=== PATIENT | male | born 1945 | race Caucasian/White ===

== ENCOUNTER → 2016-11-30 | Outpatient (CLI) | payer MEDICARE, BC, OTHER ==
[~2016-11-30] MED LIST: /AMIO20TA PO; /WARF5TA PO; BABY81CH PO; COLA100C2 PO; CORE12.5 PO; LEVOSTATIN PO; MILKSUS PO; NIAS500T2 PO; NITR0.4S SL; PAIN325T OR; PRADAXA PO; SPIR25TA2 PO; VALS80CA PO; VICO5TAB PO; XANA0.5T PO
[2016-11-30 09:36] LABS: INR 1.4
== END ==
LOC: M LAB 08:50
PROVIDERS: ATTEND Physician Assistant
DX: I48.0 Paroxysmal atrial fibrillation (principal)

== ENCOUNTER → 2016-12-14 | Outpatient (CLI) | payer MEDICARE, BC, OTHER ==
[2016-12-14 10:01] LABS: INR 2.66
== END ==
LOC: M LAB 08:54
PROVIDERS: ATTEND Nurse Practitioner Family
DX: I48.0 Paroxysmal atrial fibrillation (principal)

== ENCOUNTER → 2017-01-02 | Outpatient (CLI) | payer MEDICARE, BC, OTHER ==
[2017-01-02 10:13] LABS: INR 2.03
== END ==
LOC: M WUC 08:49
PROVIDERS: ATTEND Physician Assistant
DX: I48.0 Paroxysmal atrial fibrillation (principal)

== ENCOUNTER → 2017-01-16 | Outpatient (CLI) | payer MEDICARE, BC, OTHER ==
[2017-01-16 09:42] LABS: MEAN CORPUSCULAR HEMOGLOBIN 30.3 pg (27.0-33.0); MEAN CORPUSCULAR VOLUME 89.3 fl (80.0-96.0); RED CELL DISTRIBUTION WIDTH 13.3 % (11.5-14.5); WHITE BLOOD COUNT 4.7 K/mm3 (4.0-10.0)
[2017-01-16 10:19] LABS: ALBUMIN 3.7 GM/DL (3.2-5.2); ALBUMIN/GLOBULIN RATIO 1.28 (1.00-1.93); BILIRUBIN,TOTAL 0.8 MG/DL (0.2-1.0); CREATININE FOR GFR 1.49 MG/DL (0.70-1.30); GLOMERULAR FILTRATION RATE 49.6 (>42); POTASSIUM SERUM 4.3 MEQ/L (3.5-5.1); TOTAL PROTEIN 6.6 GM/DL (6.4-8.2)
== END ==
LOC: M WUC 08:16
PROVIDERS: ATTEND Internal Medicine Cardiovascular Disease
DX: I48.0 Paroxysmal atrial fibrillation (principal); I50.42 Chronic combined systolic (congestive) and diastolic (congestive) heart failure; I25.119 Atherosclerotic heart disease of native coronary artery with unspecified angina pectoris

== ENCOUNTER → 2017-01-31 | Outpatient (CLI) | payer MEDICARE, BC, OTHER ==
[2017-01-31 11:13] LABS: INR 3.33
== END ==
LOC: M WUC 09:17
PROVIDERS: ATTEND Physician Assistant
DX: I48.0 Paroxysmal atrial fibrillation (principal)

== ENCOUNTER → 2017-02-17 | Outpatient (CLI) | payer MEDICARE, BC, OTHER ==
[2017-02-17 12:59] LABS: INR 2.78
== END ==
LOC: M WUC 10:37
PROVIDERS: ATTEND Physician Assistant
DX: I48.0 Paroxysmal atrial fibrillation (principal)

== ENCOUNTER → 2017-03-06 | Outpatient (CLI) | payer MEDICARE, BC, OTHER ==
[2017-03-06 14:41] LABS: INR 1.41
== END ==
LOC: M WUC 12:59
PROVIDERS: ATTEND Physician Assistant
DX: I48.0 Paroxysmal atrial fibrillation (principal)

== ENCOUNTER → 2017-03-20 | Outpatient (CLI) | payer MEDICARE, BC, OTHER ==
[2017-03-20 13:19] LABS: INR 2.34
== END ==
LOC: M WUC 10:43
PROVIDERS: ATTEND Physician Assistant
DX: I48.0 Paroxysmal atrial fibrillation (principal)

== ENCOUNTER → 2017-04-10 | Outpatient (REF) | payer MEDICARE, BC, OTHER ==
[2017-04-10 13:10] LABS: INR 1.88
== END ==
LOC: M LABDRWAD 12:18 → M LABDRAW1 12:18
PROVIDERS: ATTEND Physician Assistant
DX: I48.0 Paroxysmal atrial fibrillation (principal)

== ENCOUNTER → 2017-04-11 | Outpatient (REF) | payer MEDICARE, OTHER ==
[2017-04-11 13:30] LABS: MEAN CORPUSCULAR HEMOGLOBIN 30.6 pg (27.0-33.0); MEAN CORPUSCULAR HGB CONC 33.9 g/dl (32.0-36.5); MEAN CORPUSCULAR VOLUME 90.2 fl (80.0-96.0); RED CELL DISTRIBUTION WIDTH 13.4 % (11.5-14.5); WHITE BLOOD COUNT 5.1 K/mm3 (4.0-10.0)
[2017-04-11 14:16] LABS: ALBUMIN 3.7 GM/DL (3.2-5.2); ALBUMIN/GLOBULIN RATIO 1.23 (1.00-1.93); BILIRUBIN,TOTAL 0.9 MG/DL (0.2-1.0); CALCIUM LEVEL 8.9 MG/DL (8.8-10.2); CREATININE FOR GFR 1.29 MG/DL (0.70-1.30); FREE T4 1.17 NG/DL (0.76-1.46); GLOMERULAR FILTRATION RATE 58.6 (>42); POTASSIUM SERUM 4.5 MEQ/L (3.5-5.1); TOTAL PROTEIN 6.7 GM/DL (6.4-8.2)
== END ==
LOC: M SFHCADAM 11:04
PROVIDERS: ATTEND Family Medicine
DX: D64.9 Anemia, unspecified (principal); E78.2 Mixed hyperlipidemia; E03.9 Hypothyroidism, unspecified
CPT/HCPCS: 80053; 80061; 84439; 84443; 85027; G0463

== ENCOUNTER → 2017-05-01 | Outpatient (CLI) | payer MEDICARE, OTHER ==
[2017-05-01 12:38] LABS: INR 2.14
== END ==
LOC: M WUC 08:49
PROVIDERS: ATTEND Physician Assistant
DX: I48.0 Paroxysmal atrial fibrillation (principal)

== ENCOUNTER → 2017-05-22 | Outpatient (CLI) | payer MEDICARE, OTHER ==
[2017-05-22 13:11] LABS: INR 2.21
== END ==
LOC: M WUC 08:59
PROVIDERS: ATTEND Physician Assistant
DX: Z79.01 Long term (current) use of anticoagulants (principal); I48.0 Paroxysmal atrial fibrillation

== ENCOUNTER → 2017-06-22 | Outpatient (CLI) | payer MEDICARE, OTHER ==
[2017-06-22 14:24] LABS: INR 2.98
== END ==
LOC: M WUC 08:58
PROVIDERS: ATTEND Physician Assistant
DX: I48.0 Paroxysmal atrial fibrillation (principal)

== ENCOUNTER → 2017-07-20 | Outpatient (CLI) | payer MEDICARE, OTHER ==
[2017-07-20 13:38] LABS: INR 2.24
== END ==
LOC: M WUC 10:32
PROVIDERS: ATTEND Nurse Practitioner Family
DX: I48.0 Paroxysmal atrial fibrillation (principal)

== ENCOUNTER → 2017-08-21 | Outpatient (CLI) | payer MEDICARE, OTHER ==
[2017-08-21 09:42] LABS: INR 0.94
== END ==
LOC: M WUC 08:30
PROVIDERS: ATTEND Nurse Practitioner Family
DX: I48.0 Paroxysmal atrial fibrillation (principal)

== ENCOUNTER → 2017-09-25 | Outpatient (CLI) | payer MEDICARE, OTHER ==
[2017-09-25 13:18] LABS: INR 3.08
== END ==
LOC: M WUC 10:14
PROVIDERS: ATTEND Nurse Practitioner Family
DX: I48.0 Paroxysmal atrial fibrillation (principal); Z79.01 Long term (current) use of anticoagulants

== ENCOUNTER → 2017-10-09 | Outpatient (CLI) | payer MEDICARE, OTHER ==
[2017-10-09 14:33] LABS: INR 5.54
== END ==
LOC: M WUC 09:50
PROVIDERS: ATTEND Nurse Practitioner Family
DX: I48.0 Paroxysmal atrial fibrillation (principal)

== ENCOUNTER → 2017-10-12 | Outpatient (CLI) | payer MEDICARE, BC, OTHER ==
--- NOTE | 2017-10-12 13:33 | REP ---
LEFT LOWER EXTREMITY DOPPLER VENOUS ULTRASOUND: 10/12/2017. Clinical history: Lower extremity pain. History of pulmonary emboli. Currently on Coumadin. Recently lowered dose. Comparison: None. Technique: The deep venous system of the left lower extremity is evaluated with quan scale imaging, compression ultrasound, color imaging and duplex Doppler interrogation. Examination from the groin through the popliteal fossa into the proximal calf. Findings: There is full compressibility from the common femoral vein in the inguinal region through the popliteal vein. Color imaging confirms patency throughout the course of the deep venous system. There is respiratory variation and augmented flow at all levels. The proximal calf shows a 4 x 3.3 x 2 cm hypoechoic irregular density without blood flow. This is apparently intramuscular and has the appearance of complex fluid. Impression: 1. No Doppler venous ultrasound evidence of DVT in the left lower extremity. 2. Complex fluid collection proximal calf which is apparently intramuscular and suggests hematoma at measuring 4 x 3.3 x 2 cm. Signed by Allen Rodriges MD 10/12/2017 08:38 P
== END ==
LOC: M RAD 12:30
PROVIDERS: ATTEND Physician Assistant
DX: M79.662 Pain in left lower leg (principal); Z86.711 Personal history of pulmonary embolism

== ENCOUNTER → 2017-10-16 | Outpatient (CLI) | payer MEDICARE, BC, OTHER ==
[2017-10-16 13:37] LABS: INR 2.09
== END ==
LOC: M WUC 10:04
PROVIDERS: ATTEND Internal Medicine Cardiovascular Disease
DX: I48.2 Chronic atrial fibrillation (principal)

== ENCOUNTER → 2017-10-17 | Outpatient (CLI) | payer MEDICARE, BC, OTHER ==
--- NOTE | 2017-10-17 15:54 | REP ---
PA and lateral chest: Comparison is a 06/25/2016. Lung silva are clear. Cardiac size is normal. The central shawna appear enlarged. This may indicate pulmonary hypertension. The mediastinum and bony thorax are unremarkable. There is a triple lead biventricular pacemaker/AICD. This is unchanged. Impression: There are no acute cardiopulmonary findings. There is a pacemaker, unchanged. The central shawna are chronically enlarged. This may indicate pulmonary hypertension. Signed by Dhiraj Titus MD 10/17/2017 03:46 P
[2017-10-17 16:35] LABS: BASO % 0.3 % (0.0-1.0); EOS % 0.2 % (0.0-3.0); IMMATURE GRANULOCYTE % 0.2 % (0-0); LYMPH # 1.9 10^3/uL (1.5-4.5); LYMPH % 28.2 % (24.0-44.0); MEAN CORPUSCULAR HEMOGLOBIN 29.4 pg (27.0-33.0); MEAN CORPUSCULAR HGB CONC 33.4 g/dl (32.0-36.5); MONO # 0.5 10^3/uL (0.0-0.8); MONO % 6.8 % (0.0-5.0); NEUTROPHILS # 4.3 10^3/uL (1.8-7.7); NEUTROPHILS % 64.3 % (36.0-66.0); PLATELET COUNT, AUTOMATED 289 10^3/uL (150-450); RED CELL DISTRIBUTION WIDTH 12.6 % (11.5-14.5); WHITE BLOOD COUNT 6.6 10^3/uL (4.0-10.0)
[2017-10-17 17:19] LABS: ALBUMIN 3.4 GM/DL (3.2-5.2); ALBUMIN/GLOBULIN RATIO 1.03 (1.00-1.93); BILIRUBIN,TOTAL 0.9 MG/DL (0.2-1.0); CALCIUM LEVEL 8.8 MG/DL (8.8-10.2); CREATININE FOR GFR 1.38 MG/DL (0.70-1.30); GLOMERULAR FILTRATION RATE 54.1 (>42); POTASSIUM SERUM 4.4 MEQ/L (3.5-5.1); TOTAL PROTEIN 6.7 GM/DL (6.4-8.2)
== END ==
LOC: M WUC 13:37
PROVIDERS: ATTEND Internal Medicine Cardiovascular Disease
DX: I48.0 Paroxysmal atrial fibrillation (principal)

== ENCOUNTER → 2017-11-20 | Outpatient (CLI) | payer MEDICARE, BC, OTHER ==
[2017-11-20 14:11] LABS: THYROID STIMULATING HORMONE 0.006 uIU/ML (0.358-3.740)
== END ==
LOC: M WUC 10:06
DX: I50.42 Chronic combined systolic (congestive) and diastolic (congestive) heart failure (principal); I48.0 Paroxysmal atrial fibrillation; E05.90 Thyrotoxicosis, unspecified without thyrotoxic crisis or storm
CPT/HCPCS: 84443

== ENCOUNTER → 2018-01-09 | Outpatient (CLI) | payer MEDICARE, BC, OTHER ==
[2018-01-09 18:35] LABS: THYROID STIMULATING HORMONE 0.064 uIU/ML (0.358-3.740)
== END ==
LOC: M WUC 13:32
DX: I48.0 Paroxysmal atrial fibrillation (principal)
CPT/HCPCS: 84443

== ENCOUNTER → 2018-02-13 | Outpatient (REF) | payer MEDICARE, OTHER ==
[2018-02-13 13:37] LABS: HEMOGLOBIN 14.4 g/dl (13.5-17.5); MEAN CORPUSCULAR HGB CONC 33.5 g/dl (32.0-36.5); MEAN CORPUSCULAR VOLUME 86.5 fl (80.0-96.0); PLATELET COUNT, AUTOMATED 235 10^3/uL (150-450); RED BLOOD COUNT 4.97 10^6/uL (4.30-6.10); RED CELL DISTRIBUTION WIDTH 13.2 % (11.5-14.5); WHITE BLOOD COUNT 6.5 10^3/uL (4.0-10.0)
[2018-02-13 14:30] LABS: ALBUMIN 4.1 GM/DL (3.2-5.2); ALBUMIN/GLOBULIN RATIO 1.24 (1.00-1.93); ALKALINE PHOSPHATASE 90 U/L (45-117); ALT/SGPT 53 U/L (12-78); ANION GAP 4 MEQ/L (8-16); AST/SGOT 37 U/L (7-37); BILIRUBIN,TOTAL 0.8 MG/DL (0.2-1.0); BLOOD UREA NITROGEN 23 MG/DL (7-18); CALCIUM LEVEL 9.2 MG/DL (8.8-10.2); CARBON DIOXIDE LEVEL 30 MEQ/L (21-32); CHLORIDE LEVEL 109 MEQ/L (98-107); CHOLESTEROL LEVEL 192 MG/DL (<200); CHOLESTEROL RISK RATIO 3.047 (<5); CREATININE FOR GFR 1.26 MG/DL (0.70-1.30); FREE T4 0.81 NG/DL (0.76-1.46); GLOMERULAR FILTRATION RATE > 60.0 (>42); GLUCOSE, FASTING 81 MG/DL (70-100); HDL CHOLESTEROL 63 MG/DL (>40); LDL CHOLESTEROL 100.2 MG/DL (<100); NON-HDL-C 129 MG/DL; POTASSIUM SERUM 4.7 MEQ/L (3.5-5.1); SODIUM LEVEL 143 MEQ/L (136-145); TOTAL PROTEIN 7.4 GM/DL (6.4-8.2); TRIGLYCERIDES LEVEL 144 MG/DL (<150)
== END ==
LOC: M SFHCADAM 11:01
DX: I50.22 Chronic systolic (congestive) heart failure (principal); E03.9 Hypothyroidism, unspecified; E78.2 Mixed hyperlipidemia
CPT/HCPCS: 84443

== ENCOUNTER → 2018-05-10 | Outpatient (REF) | payer MEDICARE, OTHER ==
[2018-05-10 12:35] LABS: HEMOGLOBIN 13.2 g/dl (13.5-17.5); MEAN CORPUSCULAR HEMOGLOBIN 29.7 pg (27.0-33.0); MEAN CORPUSCULAR HGB CONC 33.8 g/dl (32.0-36.5); MEAN CORPUSCULAR VOLUME 87.6 fl (80.0-96.0); PLATELET COUNT, AUTOMATED 214 10^3/uL (150-450); RED BLOOD COUNT 4.45 10^6/uL (4.30-6.10); RED CELL DISTRIBUTION WIDTH 13.3 % (11.5-14.5); WHITE BLOOD COUNT 5.7 10^3/uL (4.0-10.0)
[2018-05-10 12:40] LABS: ANION GAP 5 MEQ/L (8-16); BLOOD UREA NITROGEN 17 MG/DL (7-18); CALCIUM LEVEL 9.1 MG/DL (8.8-10.2); CARBON DIOXIDE LEVEL 28 MEQ/L (21-32); CHLORIDE LEVEL 111 MEQ/L (98-107); CREATININE FOR GFR 1.23 MG/DL (0.70-1.30); GLOMERULAR FILTRATION RATE > 60.0 (>42); GLUCOSE, FASTING 89 MG/DL (70-100); POTASSIUM SERUM 4.4 MEQ/L (3.5-5.1); SODIUM LEVEL 144 MEQ/L (136-145)
[2018-05-10 12:54] LABS: INR 1.06; PROTHROMBIN TIME 13.9 SECONDS (12.1-14.4)
[2018-05-10 12:55] LABS: PARTIAL THROMBOPLASTIN TIME 31.5 SECONDS (25.4-37.6)
== END ==
LOC: M SFHCADAM 08:46
DX: Z01.818 Encounter for other preprocedural examination (principal); I25.10 Atherosclerotic heart disease of native coronary artery without angina pectoris; Z79.01 Long term (current) use of anticoagulants
CPT/HCPCS: 80048

== ENCOUNTER → 2018-05-11 | Outpatient (CLI) | payer MEDICARE, OTHER ==
[2018-05-11 16:43] LABS: ALBUMIN 3.8 GM/DL (3.2-5.2); ALBUMIN/GLOBULIN RATIO 1.31 (1.00-1.93); ALKALINE PHOSPHATASE 80 U/L (45-117); ALT/SGPT 46 U/L (12-78); ANION GAP 6 MEQ/L (8-16); AST/SGOT 34 U/L (7-37); BILIRUBIN,TOTAL 1.4 MG/DL (0.2-1.0); BLOOD UREA NITROGEN 15 MG/DL (7-18); CALCIUM LEVEL 9.1 MG/DL (8.8-10.2); CARBON DIOXIDE LEVEL 30 MEQ/L (21-32); CHLORIDE LEVEL 108 MEQ/L (98-107); CREATININE FOR GFR 1.44 MG/DL (0.70-1.30); GLOMERULAR FILTRATION RATE 51.5 (>42); GLUCOSE, FASTING 69 MG/DL (70-100); POTASSIUM SERUM 4.7 MEQ/L (3.5-5.1); SODIUM LEVEL 144 MEQ/L (136-145); TOTAL PROTEIN 6.7 GM/DL (6.4-8.2)
[2018-05-11 16:44] LABS: HEMATOCRIT 39.8 % (42.0-52.0); HEMOGLOBIN 13.6 g/dl (13.5-17.5); MEAN CORPUSCULAR HEMOGLOBIN 29.8 pg (27.0-33.0); MEAN CORPUSCULAR HGB CONC 34.2 g/dl (32.0-36.5); MEAN CORPUSCULAR VOLUME 87.3 fl (80.0-96.0); PLATELET COUNT, AUTOMATED 230 10^3/uL (150-450); RED BLOOD COUNT 4.56 10^6/uL (4.30-6.10); RED CELL DISTRIBUTION WIDTH 13.2 % (11.5-14.5); WHITE BLOOD COUNT 6.1 10^3/uL (4.0-10.0)
[2018-05-11 17:29] LABS: INR 1.11; PROTHROMBIN TIME 14.4 SECONDS (12.1-14.4)
== END ==
LOC: M WUC 11:16
DX: Z51.81 Encounter for therapeutic drug level monitoring (principal); Z79.01 Long term (current) use of anticoagulants; Z95.810 Presence of automatic (implantable) cardiac defibrillator
CPT/HCPCS: 80053

== ENCOUNTER → 2018-08-08 | Outpatient (REF) | payer MEDICARE, OTHER ==
[2018-08-08 13:48] LABS: HEMATOCRIT 41.3 % (42.0-52.0); HEMOGLOBIN 13.7 g/dl (13.5-17.5); MEAN CORPUSCULAR HEMOGLOBIN 29.5 pg (27.0-33.0); MEAN CORPUSCULAR HGB CONC 33.2 g/dl (32.0-36.5); PLATELET COUNT, AUTOMATED 246 10^3/uL (150-450); RED BLOOD COUNT 4.64 10^6/uL (4.30-6.10); RED CELL DISTRIBUTION WIDTH 13.2 % (11.5-14.5); WHITE BLOOD COUNT 5.4 10^3/uL (4.0-10.0)
[2018-08-08 13:59] LABS: ALBUMIN 3.6 GM/DL (3.2-5.2); ALBUMIN/GLOBULIN RATIO 1.09 (1.00-1.93); ALKALINE PHOSPHATASE 77 U/L (45-117); ALT/SGPT 44 U/L (12-78); ANION GAP 5 MEQ/L (8-16); AST/SGOT 30 U/L (7-37); BILIRUBIN,TOTAL 0.8 MG/DL (0.2-1.0); BLOOD UREA NITROGEN 23 MG/DL (7-18); CALCIUM LEVEL 8.7 MG/DL (8.8-10.2); CARBON DIOXIDE LEVEL 29 MEQ/L (21-32); CHLORIDE LEVEL 108 MEQ/L (98-107); CHOLESTEROL LEVEL 177 MG/DL (<200); CHOLESTEROL RISK RATIO 2.723 (<5); CREATININE FOR GFR 1.44 MG/DL (0.70-1.30); FREE T4 1.04 NG/DL (0.76-1.46); GLOMERULAR FILTRATION RATE 51.3 (>42); GLUCOSE, FASTING 87 MG/DL (70-100); HDL CHOLESTEROL 65 MG/DL (>40); LDL CHOLESTEROL 85 MG/DL (<100); NON-HDL-C 112 MG/DL; POTASSIUM SERUM 4.5 MEQ/L (3.5-5.1); SODIUM LEVEL 142 MEQ/L (136-145); TOTAL PROTEIN 6.9 GM/DL (6.4-8.2); TRIGLYCERIDES LEVEL 133 MG/DL (<150)
== END ==
LOC: M SFHCADAM 09:22
DX: E03.9 Hypothyroidism, unspecified (principal); D64.9 Anemia, unspecified; E78.2 Mixed hyperlipidemia; Z23 Encounter for immunization
CPT/HCPCS: 84443

== ENCOUNTER 2018-08-28 12:33 | Day surgery (SDC) | payer MEDICARE, BC, OTHER ==
[2018-08-28] MEDS ORDERED: NS 1,000 ML IV (12:45)
[2018-08-28] MEDS ORDERED: LIDOCAINE 2% INJ 100 MG/5 ML SDV (FOR ANES.) As Ordered (16:11)
[2018-08-28] MEDS ORDERED: PROPOFOL 200 MG/20 ML VIAL As Ordered ×2 (16:11→16:30)
[2018-08-28] MEDS ORDERED: fentaNYL 100 MCG/2 ML INJECTION (J3010) As Ordered (16:11)
== END 2018-08-28 17:43 | disposition home or self-care (01) ==
LOC: M OPP 12:33
DX: R10.30 Lower abdominal pain, unspecified (principal); Z86.010 Personal history of colon polyps; K59.00 Constipation, unspecified; R63.4 Abnormal weight loss; Z98.0 Intestinal bypass and anastomosis status; R13.10 Dysphagia, unspecified; Z95.5 Presence of coronary angioplasty implant and graft; Z95.810 Presence of automatic (implantable) cardiac defibrillator; R07.89 Other chest pain; I25.10 Atherosclerotic heart disease of native coronary artery without angina pectoris; I25.2 Old myocardial infarction; I50.9 Heart failure, unspecified; I11.0 Hypertensive heart disease with heart failure; E78.5 Hyperlipidemia, unspecified; I73.9 Peripheral vascular disease, unspecified; E03.9 Hypothyroidism, unspecified; M19.90 Unspecified osteoarthritis, unspecified site; F32.9 Major depressive disorder, single episode, unspecified; G47.30 Sleep apnea, unspecified; K44.9 Diaphragmatic hernia without obstruction or gangrene; R06.02 Shortness of breath; R06.83 Snoring; N40.1 Benign prostatic hyperplasia with lower urinary tract symptoms; Z88.8 Allergy status to other drugs, medicaments and biological substances; Z79.82 Long term (current) use of aspirin; Z79.899 Other long term (current) drug therapy; Z79.01 Long term (current) use of anticoagulants
CPT/HCPCS: 45378

== ENCOUNTER → 2018-09-09 | Outpatient (CLI) | payer MEDICARE, BC, OTHER ==
[2018-09-09 16:27] LABS: ALBUMIN 3.5 GM/DL (3.2-5.2); ALBUMIN/GLOBULIN RATIO 1.13 (1.00-1.93); ALKALINE PHOSPHATASE 75 U/L (45-117); ALT/SGPT 77 U/L (12-78); ANION GAP 9 MEQ/L (8-16); AST/SGOT 45 U/L (7-37); BLOOD UREA NITROGEN 22 MG/DL (7-18); CALCIUM LEVEL 8.6 MG/DL (8.8-10.2); CARBON DIOXIDE LEVEL 24 MEQ/L (21-32); CHLORIDE LEVEL 109 MEQ/L (98-107); GLUCOSE, FASTING 87 MG/DL (70-100); POTASSIUM SERUM 4.5 MEQ/L (3.5-5.1); SODIUM LEVEL 142 MEQ/L (136-145); THYROXINE (T4) 12.3 UG/DL (4.5-12.0); TOTAL PROTEIN 6.6 GM/DL (6.4-8.2)
== END ==
LOC: M WUC 11:00
DX: I48.0 Paroxysmal atrial fibrillation (principal)
CPT/HCPCS: 84443

== ENCOUNTER → 2018-11-13 | Outpatient (CLI) | payer MEDICARE, BC, OTHER ==
[~2018-11-13] MED LIST changes: +CORE25TA PO; +DIGO0.12 PO; +ELIQ5TAB PO; +LEVO50TA5 PO; +LOSA25TA14 PO; +ROSU40TA3 PO; +VITA500T53 PO; +VITA50TA49 PO
[2018-11-13 13:06] LABS: BASO % 0.7 % (0.0-1.0); EOS % 0.2 % (0.0-3.0); HEMATOCRIT 40.6 % (42.0-52.0); HEMOGLOBIN 13.6 g/dl (13.5-17.5); LYMPH # 2.4 10^3/uL (1.5-4.5); MEAN CORPUSCULAR HGB CONC 33.5 g/dl (32.0-36.5); MEAN CORPUSCULAR VOLUME 89.6 fl (80.0-96.0); MONO # 0.4 10^3/uL (0.0-0.8); MONO % 6.9 % (0.0-5.0); NEUTROPHILS # 3.1 10^3/uL (1.8-7.7); PLATELET COUNT, AUTOMATED 234 10^3/uL (150-450); RED BLOOD COUNT 4.53 10^6/uL (4.30-6.10); WHITE BLOOD COUNT 5.9 10^3/uL (4.0-10.0)
[2018-11-13 14:15] LABS: ALBUMIN 3.4 GM/DL (3.2-5.2); BILIRUBIN,TOTAL 0.7 MG/DL (0.2-1.0); CREATININE FOR GFR 1.29 MG/DL (0.70-1.30); FREE T4 1.02 NG/DL (0.76-1.46); GLOMERULAR FILTRATION RATE 58.3 (>42); POTASSIUM SERUM 3.9 MEQ/L (3.5-5.1); THYROID STIMULATING HORMONE 14.9 uIU/ML (0.358-3.740); THYROXINE (T4) 10.4 UG/DL (4.5-12.0); TOTAL PROTEIN 6.4 GM/DL (6.4-8.2)
== END ==
LOC: M WUC 10:31
PROVIDERS: ATTEND Internal Medicine Cardiovascular Disease
DX: I50.42 Chronic combined systolic (congestive) and diastolic (congestive) heart failure (principal); I48.0 Paroxysmal atrial fibrillation

== ENCOUNTER → 2019-01-22 | Outpatient (CLI) | payer MEDICARE, BC, OTHER | LOC: M WUC 09:43 | PROVIDERS: ATTEND Internal Medicine Cardiovascular Disease | DX: E03.9 Hypothyroidism, unspecified (principal) ==

== ENCOUNTER → 2019-03-14 | Outpatient (CLI) | payer MEDICARE, BC, OTHER ==
[~2019-03-14] MED LIST changes: -/AMIO20TA PO; -/WARF5TA PO; +AMIO1TAB PO; +COUM1TAB17 PO; +VITA500T17 PO; -VITA500T53 PO; -VITA50TA49 PO; +VITA50TA7 PO
[2019-03-14 10:06] LABS: ALBUMIN 3.8 GM/DL (3.2-5.2); BILIRUBIN,TOTAL 0.9 MG/DL (0.2-1.0); CALCIUM LEVEL 8.8 MG/DL (8.8-10.2); CREATININE FOR GFR 1.5 MG/DL (0.70-1.30); POTASSIUM SERUM 4.4 MEQ/L (3.5-5.1); THYROID STIMULATING HORMONE 8.24 uIU/ML (0.358-3.740); TOTAL PROTEIN 6.6 GM/DL (6.4-8.2)
== END ==
LOC: M WUC 08:05
PROVIDERS: ATTEND Internal Medicine Cardiovascular Disease
DX: I50.42 Chronic combined systolic (congestive) and diastolic (congestive) heart failure (principal); R07.2 Precordial pain; I48.0 Paroxysmal atrial fibrillation

== ENCOUNTER → 2019-04-29 | Outpatient (CLI) | payer MEDICARE, BC, OTHER | LOC: M WUC 09:55 | PROVIDERS: ATTEND Internal Medicine Cardiovascular Disease | DX: I48.0 Paroxysmal atrial fibrillation (principal) ==

== ENCOUNTER → 2019-07-15 | Outpatient (CLI) | payer MEDICARE, OTHER, BC ==
[~2019-07-15] MED LIST changes: -ROSU40TA3 PO; +ROSU40TA4 PO
[2019-07-15 14:07] LABS: BASO % 0.6 % (0.0-1.0); HEMATOCRIT 41.4 % (42.0-52.0); HEMOGLOBIN 13.6 g/dl (13.5-17.5); LYMPH # 1.6 10^3/uL (1.5-5.0); LYMPH % 29.9 % (24.0-44.0); MEAN CORPUSCULAR HEMOGLOBIN 30.2 pg (27.0-33.0); MEAN CORPUSCULAR HGB CONC 32.9 g/dl (32.0-36.5); MONO # 0.4 10^3/uL (0.0-0.8); MONO % 7.2 % (0.0-5.0); NEUTROPHILS # 3.4 10^3/uL (1.5-8.5); NEUTROPHILS % 62.1 % (36.0-66.0); PLATELET COUNT, AUTOMATED 214 10^3/uL (150-450); WHITE BLOOD COUNT 5.4 10^3/uL (4.0-10.0)
[2019-07-15 14:18] LABS: ALBUMIN 3.9 GM/DL (3.2-5.2); BILIRUBIN,TOTAL 1.1 MG/DL (0.2-1.0); CALCIUM LEVEL 9.4 MG/DL (8.8-10.2); CREATININE FOR GFR 1.38 MG/DL (0.70-1.30); GLOMERULAR FILTRATION RATE 53.8 (>42); POTASSIUM SERUM 4.5 MEQ/L (3.5-5.1); THYROID STIMULATING HORMONE 19.4 uIU/ML (0.358-3.740); TOTAL PROTEIN 6.5 GM/DL (6.4-8.2)
== END ==
LOC: M WUC 09:46
PROVIDERS: ATTEND Internal Medicine Cardiovascular Disease
DX: I48.0 Paroxysmal atrial fibrillation (principal); I35.1 Nonrheumatic aortic (valve) insufficiency; I50.42 Chronic combined systolic (congestive) and diastolic (congestive) heart failure; E03.9 Hypothyroidism, unspecified; I11.0 Hypertensive heart disease with heart failure

== ENCOUNTER → 2019-08-16 | Outpatient (CLI) | payer MEDICARE, OTHER, BC ==
[2019-08-16 10:08] LABS: HEMATOCRIT 40.1 % (42.0-52.0); HEMOGLOBIN 13.1 g/dl (13.5-17.5); MEAN CORPUSCULAR HEMOGLOBIN 29.9 pg (27.0-33.0); MEAN CORPUSCULAR HGB CONC 32.7 g/dl (32.0-36.5); MEAN CORPUSCULAR VOLUME 91.6 fl (80.0-96.0); PLATELET COUNT, AUTOMATED 226 10^3/uL (150-450); RED BLOOD COUNT 4.38 10^6/uL (4.30-6.10); WHITE BLOOD COUNT 4.9 10^3/uL (4.0-10.0)
[2019-08-16 10:47] LABS: ALBUMIN 3.6 GM/DL (3.2-5.2); BILIRUBIN,TOTAL 1.1 MG/DL (0.2-1.0); CALCIUM LEVEL 8.9 MG/DL (8.8-10.2); CHOLESTEROL RISK RATIO 2.385 (<5); CREATININE FOR GFR 1.47 MG/DL (0.70-1.30); FREE T4 0.98 NG/DL (0.76-1.46); POTASSIUM SERUM 4.4 MEQ/L (3.5-5.1); THYROID STIMULATING HORMONE 13.2 uIU/ML (0.358-3.740); TOTAL PROTEIN 6.5 GM/DL (6.4-8.2)
== END ==
LOC: M WUC 08:38
PROVIDERS: ATTEND Family Medicine
DX: I25.10 Atherosclerotic heart disease of native coronary artery without angina pectoris (principal); I50.22 Chronic systolic (congestive) heart failure; E03.9 Hypothyroidism, unspecified; Z12.5 Encounter for screening for malignant neoplasm of prostate
CPT/HCPCS: 36415; 80053; 80061; 84439; 84443; 85027; G0103

== ENCOUNTER 2019-10-14 19:14 | Inpatient (IN) | payer MEDICARE, OTHER ==
[~2019-10-14] VITALS: Ht 170.2 cm; Wt 71.9 kg
[~2019-10-14 19:14] MED LIST changes: -AMIO200T PO; -ASPI-161 PO; -CARV12.5 PO; -COQ1100C5 PO; -COQ150CH PO; -COZA1TAB PO; -D32000TA2 PO; -FOLI800C PO; -NITR4TASL SL; -SPIR-10 PO
[2019-10-14] MEDS ORDERED: COQ150CH PO (19:42)
[2019-10-14] MEDS ORDERED: COZA1TAB PO (19:48)
[2019-10-14 20:07] LABS: BASO % 0.2 % (0.0-1.0); HEMATOCRIT 43.5 % (42.0-52.0); HEMOGLOBIN 14.1 g/dl (13.5-17.5); LYMPH # 0.5 10^3/uL (1.5-5.0); LYMPH % 4.7 % (24.0-44.0); MEAN CORPUSCULAR HEMOGLOBIN 29.9 pg (27.0-33.0); MEAN CORPUSCULAR HGB CONC 32.4 g/dl (32.0-36.5); MEAN CORPUSCULAR VOLUME 92.2 fl (80.0-96.0); MONO # 0.4 10^3/uL (0.0-0.8); MONO % 4.1 % (0.0-5.0); NEUTROPHILS # 8.7 10^3/uL (1.5-8.5); NEUTROPHILS % 90.6 % (36.0-66.0); PLATELET COUNT, AUTOMATED 211 10^3/uL (150-450); RED BLOOD COUNT 4.72 10^6/uL (4.30-6.10); WHITE BLOOD COUNT 9.7 10^3/uL (4.0-10.0)
[2019-10-14] MEDS ORDERED: NITROGLYCERIN 0.4 MG SUBL TABLET SL PRN (20:15)
[2019-10-14 20:19] LABS: BLOOD UREA NITROGEN 24 MG/DL (7-18); CALCIUM LEVEL 9.1 MG/DL (8.8-10.2); CARBON DIOXIDE LEVEL 28 MEQ/L (21-32); CHLORIDE LEVEL 107 MEQ/L (98-107); CK-MB VALUE MASS 1.9 NG/ML (<3.6); CPK CREATINE PHOSPHOKINASE 135 U/L (39-308); CREATININE FOR GFR 1.55 MG/DL (0.70-1.30); GLUCOSE, FASTING 125 MG/DL (70-100); MB/CK RELATIVE INDEX 1.41 (< OR =4); POTASSIUM SERUM 4.8 MEQ/L (3.5-5.1); SODIUM LEVEL 139 MEQ/L (136-145); TROPONIN I < 0.02 NG/ML (< 0.10)
[2019-10-14] MEDS ORDERED: ISOVUE-370 76% 100ML VIAL (Q9967) As Ordered ONE (20:29)
[2019-10-14] MEDS ORDERED: NS 1,000 ML IV ONE ×2 (20:45→22:45)
[2019-10-14] MEDS ORDERED: ONDANSETRON 4MG/2ML VIAL (J2405) IV ONE ×2 (20:45→22:45)
--- NOTE | 2019-10-14 21:05 | REPVR ---
PROCEDURE INFORMATION: Exam: CT Head Without Contrast Exam date and time: 10/14/2019 8:34 PM Age: 74 years old Clinical history: Altered mental status/memory loss; Additional info: AMS TECHNIQUE: Imaging protocol: Computed tomography of the head without contrast. Radiation optimization: All CT scans at this facility use at least one of these dose optimization techniques: automated exposure control; mA and/or kV adjustment per patient size (includes targeted exams where dose is matched to clinical indication); or iterative reconstruction. COMPARISON: CT Head without contrast 2013-08-25 12:20 FINDINGS: Brain: Diffuse mild cerebral age related volume loss. Mild patchy low attenuation in the white matter compatible with mild chronic small vessel ischemic disease. No midline shift, mass, fluid collection, or evidence of hemorrhage. Ventricles: Ventricular enlargement proportional to volume loss. Bones/joints: Unremarkable. No acute fracture. Sinuses: Visualized sinuses are unremarkable. No fluid levels. Mastoid air cells: Visualized mastoid air cells are well aerated. Soft tissues: Unremarkable. IMPRESSION: Mild involutional changes, no acute intracranial abnormality. Electronically signed by: Wes Solomon On 10/14/2019 21:04:49 PM
--- NOTE | 2019-10-14 21:07 | REPVR ---
PROCEDURE INFORMATION: Exam: CT Abdomen And Pelvis With Contrast Exam date and time: 10/14/2019 8:46 PM Age: 74 years old Clinical history: Nausea and vomiting; Additional info: N/v TECHNIQUE: Imaging protocol: Computed tomography of the abdomen and pelvis with intravenous contrast. Radiation optimization: All CT scans at this facility use at least one of these dose optimization techniques: automated exposure control; mA and/or kV adjustment per patient size (includes targeted exams where dose is matched to clinical indication); or iterative reconstruction. Contrast material: ISOVUE 370; Contrast volume: 100 ml; Contrast route: IV; COMPARISON: No relevant prior studies available. FINDINGS: Limitations: Artifact related to patient's arm position limits evaluation. Tubes, catheters and devices: ICD leads in the heart. Lungs: Dependent subsegmental pulmonary atelectasis. Liver: Normal. No mass. Gallbladder and bile ducts: Normal. No calcified stones. No ductal dilation. Pancreas: Normal. No ductal dilation. Spleen: Normal. No splenomegaly. Adrenals: Normal. No mass. Kidneys and ureters: Numerous renal cysts measuring up to 4.7 cm. Stomach and bowel: Constipation. Sigmoid bowel anastomosis. Mucosal enhancement with submucosal edema in the gastric antrum and duodenum, evidence of gastritis and peptic ulcer disease. Mild mucosal enhancement and excessive fluid in the small bowel and proximal colon, correlate for enterocolitis. Appendix: No evidence of appendicitis. Intraperitoneal space: Unremarkable. No free air. No significant fluid collection. Vasculature: Mild to moderate aortic and iliac artery atherosclerotic calcification. Lymph nodes: Unremarkable. No enlarged lymph nodes. Bladder: Unremarkable as visualized. Reproductive: Unremarkable as visualized. Bones/joints: Moderate levoconvex lumbar scoliosis. Soft tissues: Unremarkable. IMPRESSION: 1. Mucosal enhancement with submucosal edema in the gastric antrum and duodenum, evidence of gastritis and peptic ulcer disease. 2. Mild mucosal enhancement and excessive fluid in the small bowel and proximal colon, correlate for enterocolitis. Electronically signed by: Wes Solomon On 10/14/2019 21:07:33 PM
--- NOTE | 2019-10-14 21:11 | REPVR ---
PROCEDURE INFORMATION: Exam: CT Angiography Chest With Contrast Exam date and time: 10/14/2019 8:34 PM Age: 74 years old Clinical history: Other: R/O tad TECHNIQUE: Imaging protocol: Computed tomographic angiography of the chest with intravenous contrast. 3D rendering: MIP reconstructed images were created and reviewed. Radiation optimization: All CT scans at this facility use at least one of these dose optimization techniques: automated exposure control; mA and/or kV adjustment per patient size (includes targeted exams where dose is matched to clinical indication); or iterative reconstruction. Contrast material: ISOVUE 370; Contrast volume: 100 ml; Contrast route: IV; COMPARISON: CR PORTABLE CHEST X-RAY 2019-10-14 20:01 FINDINGS: Tubes, catheters and devices: AICD/Pacemaker device is present, and its leads are in appropriate position. Pulmonary arteries: Suboptimal pulmonary artery contrast concentration for pulmonary emboli evaluation. No main or segmental central pulmonary emboli. Nondiagnostic for more peripheral pulmonary branches. Aorta: Unremarkable. No aortic aneurysm. No aortic dissection. Other arteries: Excellent opacification of the systemic arteries. Lungs: Dependent subsegmental pulmonary atelectasis. Pleural space: Unremarkable. No pneumothorax. No pleural effusion. Heart: Moderate cardiomegaly. 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 Lymph nodes: Unremarkable. No enlarged lymph nodes. Bones/joints: Unremarkable. No acute fracture. Soft tissues: Unremarkable. IMPRESSION: 1. No acute arterial abnormality. Impression. 2. Moderate cardiomegaly. 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 3. Suboptimal pulmonary artery contrast concentration for pulmonary emboli evaluation. No main or segmental central pulmonary emboli. Nondiagnostic for more peripheral pulmonary branches. Electronically signed by: Wes Solomon On 10/14/2019 21:10:38 PM
[2019-10-14] MEDS ORDERED: METOCLOPRAMIDE INJ 10MG/2ML VIAL (J2765) IV ONE (21:45)
[2019-10-14] MEDS ORDERED: PANTOPRAZOLE 40MG INJ (PROTONIX) (C9113) IV ONE (21:45)
[2019-10-14] MEDS ORDERED: GI COCKTAIL 50ML BTL(HYOSCYAMINE/MAALOX/LIDOCAINE VISCOUS)(1:3:1) PO ONE (22:00)
[2019-10-14 22:24] LABS: CK-MB VALUE MASS 1.5 NG/ML (<3.6); CPK CREATINE PHOSPHOKINASE 114 U/L (39-308); MB/CK RELATIVE INDEX 1.32 (< OR =4); TROPONIN I < 0.02 NG/ML (< 0.10)
[2019-10-14 22:45] LABS: ALBUMIN 3.2 GM/DL (3.2-5.2); ALT/SGPT 52 U/L (12-78); BILIRUBIN,DIRECT 0.3 MG/DL (0.0-0.2); BILIRUBIN,TOTAL 1.2 MG/DL (0.2-1.0); LIPASE 198 U/L (73-393)
[2019-10-15] VITALS (12 sets, daily range): BP systolic 84–121; BP diastolic 47–62
[2019-10-15 02:05] LABS: CK-MB VALUE MASS 1.4 NG/ML (<3.6); CPK CREATINE PHOSPHOKINASE 103 U/L (39-308); MB/CK RELATIVE INDEX 1.36 (< OR =4); TROPONIN I < 0.02 NG/ML (< 0.10)
[2019-10-15] MEDS ORDERED: FAMOTIDINE IV BAG 20 MG in IV 1 EA IV ONE (03:30)
[2019-10-15] MEDS ORDERED: SUCRALFATE 1 GM TAB PO ONE (03:30)
--- NOTE | 2019-10-15 03:44 | HPEPDOC ---
[facility] Medical History & Physical Date of Admission Oct 15, 2019 Date of Service: Oct 15, 2019 Primary Care Physician: Kelvin Cooper MD Attending Physician: Kelvin Cooper MD History and Physical TIME OF SERVICE: 4:40 AM CHIEF COMPLAINT: Chest/stomach pain HISTORY OF PRESENT ILLNESS: This is a 74-year-old male who presents with complaints of mid "uncomfortable", "heavy" chest pain since 4 PM in the afternoon. Initially the pain was 8 out of 10 in severity at the time of my interview, it improved to 2 out of 10 in severity. He also feels like his stomach is "on fire"; this has been going on "off and on" for the last 6-7 months. He feels that the stomach pain is worse after he eats foods like ham, pork, respiratory sauce. Yesterday he had 3 episodes of loose stools, along with 3 episodes of nonbloody emesis prior to arrival in the ED; he vomited 5-6 more times while in the ED. Reports having multiple EGDs and colonoscopies in the past, but denies any prior knowledge of peptic ulcer disease. He has had had multiple episodes of passing out that are proceeded with sensation of his heart racing, shortness of breath, and weakness. Per discussion with Dr. Reardon, the patient received nitroglycerin and had a vasovagal episode, thereafter, and vomited. At the time his blood pressure decreased from 125/60 to 80/40. REVIEW OF SYSTEMS: 12 point review of systems negative except as listed in HPI PAST MEDICAL/ SURGICAL HISTORY: Chronic CAD status post stents 5, Dyslipidemia. Chronic systolic/diastolic congestive heart failure with EF of 30-40%./Status post biventricular pacemaker placement Chronic hypertension. Prior laparoscopic hemicolectomy to resect colonic polyp. Paroxysmal atrial fibrillation. Hyperbilirubinemia, possibly due to Gilbert's? Occipital neuralgia Hypothyroidism. Lipiotor induced myositis SOCIAL HISTORY: Lives with his . He is a nonsmoker. He exercises 3 times a week FAMILY HISTORY: Pancreatic cancer. Migraines. Hypertension Rheumatoid arthritis Hypertension ALLERGIES: Please see below. HOME MEDICATIONS: Please see below. PHYSICAL EXAMINATION: VITAL SIGNS: Please see below. GEN: well nourished / well developed/ slightly anxious INTEGUMENT: not flushed/ not jaundice / there is well-healed a post laparoscopy scar at the mid to lower abdomen HEENT: normocephalic / atraumatic / lips acyanotic /mucus membranes slightly dry/ sclera anicteric CVS: RRR/NMRG/ radial and dorsalis pedis pulses intact / no lower extremity edema LUNGS: able to speak full sentences without stopping to take a breath / no coughing / lungs are clear to auscultation bilaterally on room air ABDOMEN: there are no masses or lesions / bowel sounds are present / the abdomen is tympanic on percussion, soft & not tender with light palpation of the epigastric region MSK/EXTREMITIES: range of motion intact in all 4 extremities NEURO: CN 2-12 are grossly intact / speech is not dysarthric PSYCH: alert and oriented to person place and time/ able to understand and follow all commands LABORATORY DATA: See below. IMAGING: Chest x-ray shows placement of a biventricular pacemaker was otherwise unremarkable. The final read is pending CT head "IMPRESSION: Mild involutional changes, no acute intracranial abnormality." CT chest "IMPRESSION: 1. No acute arterial abnormality. Impression. 2. Moderate cardiomegaly. 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 3. Suboptimal pulmonary artery contrast concentration for pulmonary emboli evaluation. No main or segmental central pulmonary emboli. Nondiagnostic for more peripheral pulmonary branches. " CT abdomen and pelvis "IMPRESSION: 1. Mucosal enhancement with submucosal edema in the gastric antrum and duodenum, evidence of gastritis and peptic ulcer disease. 2. Mild mucosal enhancement and excessive fluid in the small bowel and proximal colon, correlate for enterocolitis. " MICROBIOLOGY: Please see below. ASSESSMENT: Mr. Henderson is a 74-year-old male with a past medical history of systolic and diastolic heart failure, chronic CAD, hypothyroidism, chronic hypertension, p aroxysmal atrial fibrillation, and dyslipidemia will be admitted for evaluation of SIRS/ Sepsis, gastritis/peptic ulcer disease, and hypotension. PLAN: 1. Syncope secondary to orthostatic hypotension. Possibly due to vomiting Beyond the hypotension and low-grade fever, he doesn't have any SIRS criteria Plan: Admit to medical floor/telemetry/fall precautions/give IV fluids/follow-up magnesium/if there are any abnormalities on telemetry, the daytime team may consider cardiology consult / hold home antihypertensives 2. Chest and abdominal pain secondary to peptic ulcer disease/gastritis. The main alarm symptom that the patient has is his age >60 EKG showed atrial paced rhythm with a heart rate of 60 and inverted T waves in V1 to V6 which were similar to those seen on the previous EKG The troponins were unremarkable. CT scan showed gastritis and peptic ulcer disease. Plan: Zofran/Clear liquid diet pending GI consult for EGD possible /follow-up stool H. pylori/Pepto-Bismol with PPI 3. Chronic CAD status post stents 5 Plan: Resume home meds except for antihypertensives & nitro 4. Dyslipidemia. Plan: Resume home meds 5. Chronic systolic/diastolic congestive heart failure Plan resume home meds except for antihypertensives 6. Paroxysmal atrial fibrillation. Plan: Resume home meds 7. Hypothyroidism. Plan: Resume home meds DVT prophylaxis without this Disposition likely home after more than 2 midnight's stay Late Entry 604AM I received a call from the RN on [facility] informing me that the patient had spiked another fever and his BP had dropped Plan: pending AM blood work, will initiate sepsis protocol with snell cultures, lactic acid, abx & IVF; the day time team can de-escalate abx pending the results of the work up Vital Signs Vital Signs Date Time Temp Pulse Resp B/P (MAP) Pulse Ox O2 Delivery O2 Flow Rate FiO2 10/15/19 01:40 72 102/57 (72) 94 Nasal Cannula 1.0 10/15/19 00:54 100.8 10/15/19 00:00 21 Laboratory Data Labs 24H Laboratory Tests 2 10/14/19 19:26: Immature Granulocyte % (Auto) 0.4, Neutrophils (%) (Auto) 90.6H, Lymphocytes (%) (Auto) 4.7L, Monocytes (%) (Auto) 4.1, Eosinophils (%) (Auto) 0.0, Basophils (%) (Auto) 0.2, Neutrophils # (Auto) 8.7H, Lymphocytes # (Auto) 0.5L, Monocytes # (Auto) 0.4, Eosinophils # (Auto) 0.0, Basophils # (Auto) 0.0, Nucleated Red Blood Cells % (auto) 0.0, Anion Gap 4L, Glomerular Filtration Rate 47.0, Calcium Level 9.1, Total Creatine Kinase 135, Creatine Kinase MB 1.9, Creatine Kinase MB Relative Index 1.41, Troponin I < 0.02 10/14/19 21:47: Total Creatine Kinase 114, Creatine Kinase MB 1.5, Creatine Kinase MB Relative Index 1.32, Troponin I < 0.02, Total Bilirubin 1.2H, Direct Bilirubin 0.3H, Aspartate Amino Transf (AST/SGOT) 34, Alanine Aminotransferase (ALT/SGPT) 52, Alkaline Phosphatase 57, Total Protein 6.0L, Albumin 3.2, Albumin/Globulin Ratio 1.14, Lipase 198 10/15/19 01:35: Total Creatine Kinase 103, Creatine Kinase MB 1.4, Creatine Kinase MB Relative Index 1.36, Troponin I < 0.02 CBC/BMP Laboratory Tests 10/14/19 19:26 Home Medications Scheduled Amiodarone HCl (Amiodarone HCl) 200 Mg Tablet, 200 MG PO DAILY Apixaban (Eliquis) 5 Mg Tab, 5 MG PO BID Aspirin (Aspirin EC) 81 Mg Tablet.dr, 81 MG PO DAILY Carvedilol (Coreg) 12.5 Mg Tab, 12.5 MG PO DAILY Carvedilol (Carvedilol) 12.5 Mg Tablet, 18.75 MG PO QPM DINNERTIME Cholecalciferol (Vitamin D3) (Vitamin D3) 2,000 Unit Tablet, 2,000 UNIT PO DAILY Cyanocobalamin (Vitamin B-12) (Vitamin B-12) 500 Mcg Tab, 500 MCG PO QPM DINNERTIME Folic Acid (Folic Acid) 0.8 Mg Capsule, 800 MCG PO QPM DINNERTIME Levothyroxine Sodium (Levothyroxine Sodium) 50 Mcg Tab, 50 MCG PO DAILY Losartan Potassium (Cozaar) 25 Mg Tablet, 25 MG PO QPM DINNERTIME Pyridoxine HCl (Vitamin B6) (Vitamin B-6) 50 Mg Tab, 50 MG PO QPM DINNERTIME Rosuvastatin Calcium (Rosuvastatin Calcium) 40 Mg Tab, 40 MG PO QPM DINNERTIME Spironolactone (Spironolactone) 25 Mg Tablet, 12.5 MG PO DAILY Ubidecarenone (Co Q-10) 100 Mg Capsule, 100 MG PO DAILY Scheduled PRN Nitroglycerin (Nitrostat) 0.4 Mg Tab.subl, 0.4 MG SL NITRO PRN for CHEST PAIN Allergies Coded Allergies: SHEMAR Inhibitors (Verified Allergy, Unknown, 10/14/19) atorvastatin (Verified Allergy, Unknown, 10/14/19) A-FIB/CHADSVASC A-FIB History Current/History of A-Fib/PAF?: Yes Current PO Anticoag Therapy: Yes DYLAN KAISER MD Oct 15, 2019 03:44
[2019-10-15] MEDS ORDERED: CALCIUM CARBONATE 500 MG CHEW U/D PO PRN (03:45)
[2019-10-15] MEDS ORDERED: PINK BISMUTH SUSP 524MG/30ML ORAL SYRINGE PO PRN (03:45)
[2019-10-15] MEDS ORDERED: ACETAMINOPHEN TAB 650MG DOSE (2X325MG) PO PRN (03:45)
[2019-10-15] MEDS ORDERED: ASPI-161 PO (03:52)
[2019-10-15] MEDS ORDERED: FOLI800C PO (03:52)
[2019-10-15] MEDS ORDERED: CARV12.5 PO (03:52)
[2019-10-15] MEDS ORDERED: NITR4TASL SL (03:52)
[2019-10-15] MEDS ORDERED: D32000TA2 PO (03:52)
[2019-10-15] MEDS ORDERED: AMIO200T PO (03:52)
[2019-10-15] MEDS ORDERED: SPIR-10 PO (03:52)
[2019-10-15] MEDS ORDERED: COQ1100C5 PO (03:52)
[2019-10-15 04:23] LABS: MAGNESIUM LEVEL 1.7 MG/DL (1.8-2.4)
[2019-10-15] MEDS ORDERED: NOREPINEPHRINE BITARTRATE 8 MG in D5W 500 ML IV SCH (05:53)
[2019-10-15] MEDS ORDERED: SODIUM CHLORIDE 0.9% 1000ML IV STA (05:53)
[2019-10-15 06:40] LABS: ABG BASE EXCESS -3.1 (-2.0-2.0); ABG HCO3 21.6 MEQ/L (22.0-26.0); ABG O2 SATURATION 94.8 % (95.0-99.0); ABG PARTIAL PRESSURE CO2 37.4 mmHg (35.0-45.0); ABG STANDARD HCO3 21.8 MEQ/L (22.0-26.0); ABG TOTAL CO2 22.7 MEQ/L (23.0-31.0); ABG pH (ARTERIAL) 7.379 UNITS (7.350-7.450)
[2019-10-15] MEDS ORDERED: ACETAMINOPHEN *IV* 1,000 MG in IV 1 EA IV ONE (07:00)
[2019-10-15] MEDS ORDERED: KETOROLAC 30 MG/ML VIAL (J1885) IV ONE (07:00)
--- NOTE | 2019-10-15 07:00 | PHACANCOPD ---
PHARMACY VANCOMYCIN DOSING Pt Demographics Demographics Patient Age:74 , Weight:71.800 , Gender: male Adjusted Body Weight Date: 10/15/19, Adjusted Body Weight: Kg Events Past 24 Hours Events Past 24 Hours: NO: Dialysis, Diuretic Therapy, Change in CrCl, Fever, Elevation in WBC, Pending Diagnostics, Pending Procedures, Other Vancomycin Vancomycin indication: sepsis Vancomycin Target Ranges: 15-20 mcg/ml Vancomycin Load Y/N: Yes Load Dose Date Time Vancomycin Load Dose: 1.5g Date: 10/15/19 Time: 08:00 Vancomycin Dose Date: 10/15/19. Current Vancomycin Dose: [1g iv q 24h] Intermittent Dosing?: No Labs Labs Item Value Date Time Creatinine 1.55 MG/DL H 10/14/191925 White Blood Count 9.7 10^3/uL 10/14/191925 Neutrophils # (Auto) 8.7 10^3/uL H 10/14/191925 Creatinine Clearance Date:10/15/19. Creatinine Clearance: [39.7ML/MIN]. Assessment and Plan Maintaining Current Dose?: Yes Reason for dose change: No Dose Change Pharmacist Note Pharmacist Note Date: 10/15/19. Pharmacist note: PT is a 74 year old male being treated for sepsis goal trough 15-20mcg/ml. The patient has not been treated with vancomycin here at [facility] in the past. To achieve goal a 1.5g loading dose will start today @ 08:00. Maintenance therapy will consist of 1g IV every 24 hours. We will continue to monitor and adjust the dose as needed. ROGELIO DUPREE [facility] Oct 15, 2019 07:00
[2019-10-15 07:04] LABS: BASO % 0.3 % (0.0-1.0); HEMATOCRIT 35.6 % (42.0-52.0); LYMPH # 0.3 10^3/uL (1.5-5.0); LYMPH % 4.2 % (24.0-44.0); MEAN CORPUSCULAR HEMOGLOBIN 30.1 pg (27.0-33.0); MEAN CORPUSCULAR HGB CONC 33.4 g/dl (32.0-36.5); MEAN CORPUSCULAR VOLUME 89.9 fl (80.0-96.0); MONO # 0.3 10^3/uL (0.0-0.8); NEUTROPHILS # 6.4 10^3/uL (1.5-8.5); NEUTROPHILS % 91.1 % (36.0-66.0); PLATELET COUNT, AUTOMATED 173 10^3/uL (150-450); RED BLOOD COUNT 3.96 10^6/uL (4.30-6.10); WHITE BLOOD COUNT 7.1 10^3/uL (4.0-10.0)
[2019-10-15 07:08] LABS: HEMOGLOBIN 11.9 g/dl (13.5-17.5)
[2019-10-15 07:27] LABS: ALBUMIN 3.1 GM/DL (3.2-5.2); BILIRUBIN,TOTAL 1.4 MG/DL (0.2-1.0); CREATININE FOR GFR 1.41 MG/DL (0.70-1.30); GLOMERULAR FILTRATION RATE 52.5 (>42); POTASSIUM SERUM 4.2 MEQ/L (3.5-5.1); TOTAL PROTEIN 5.7 GM/DL (6.4-8.2)
--- NOTE | 2019-10-15 08:12 | ECGEPIP ---
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
--- NOTE | 2019-10-15 08:17 | ECGEPIP ---
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
[2019-10-15] MEDS ORDERED: VANCOMYCIN HCL 500 MG in D5W MINI-BAG PLUS 100 ML IV ONE (09:00)
[2019-10-15] MEDS ORDERED: PANTOPRAZOLE 40MG TAB (PROTONIX) PO SCH (09:00)
[2019-10-15] MEDS: LEVOTHYROXINE 50MCG TABLET (0.05MG) PO SCH (09:24)
[2019-10-15] MEDS: ASPIRIN 81 MG ENTERIC TAB PO SCH (09:24)
[2019-10-15] MEDS: APIXABAN 5 MG TAB (ELIQUIS) PO SCH ×2 (09:24→21:35)
[2019-10-15] MEDS: AMIODARONE 200 MG TAB (PACERONE) PO SCH (09:24)
[2019-10-15] MEDS: MEROPENEM INJ 1 GM in IV 1 EA IV SCH ×2 (09:25→18:40)
--- NOTE | 2019-10-15 09:32 | REP ---
CHEST, PORTABLE: AP portable view of the chest is performed and compared to a prior study of 03/25/2019. There is mild bibasilar fibroatelectatic change without evidence of acute infiltrate or pulmonary edema. There is slight elevation of the left hemidiaphragm. Heart is not significantly enlarged. There is calcification and tortuosity of the thoracic aorta. Mediastinal silhouette is unchanged. Left pacemaker is again noted. IMPRESSION: Mild bibasilar fibroatelectatic change without evidence of acute infiltrate or pulmonary edema. Electronically Signed by Dhiraj Gore MD 10/16/2019 10:25 A
[2019-10-15] MEDS: VANCOMYCIN HCL 1,000 MG, VIAL MATE ADAPTER 1 EACH in D5W 250 ML IV SCH (11:00)
[2019-10-15] MEDS: oxyCODONE 5MG TAB PO PRN ×2 (17:11→23:49)
[2019-10-15 17:53] LABS: ALBUMIN 2.7 GM/DL (3.2-5.2); BILIRUBIN,TOTAL 1.4 MG/DL (0.2-1.0); CALCIUM LEVEL 7.5 MG/DL (8.8-10.2); CREATININE FOR GFR 1.53 MG/DL (0.70-1.30); GLOMERULAR FILTRATION RATE 47.7 (>42); POTASSIUM SERUM 4.4 MEQ/L (3.5-5.1); TOTAL PROTEIN 5.1 GM/DL (6.4-8.2)
[2019-10-15] MEDS ORDERED: PYRIDOXINE 50 MG TAB PO SCH (18:00)
[2019-10-15] MEDS: ROSUVASTATIN 10 MG TAB (CRESTOR) PO SCH (21:35)
--- NOTE | 2019-10-16 02:03 | IPNPDOC ---
Subjective Date Seen The patient was seen on 10/15/19. Subjective Chief Complaint/HPI Patient complains of abdominal discomfort, worse on the right side, with nausea, fever, and headache. He was seen twice today, the first time noting more RLQ discomfort, and the second time with RUQ discomfort. After the first visit, the case was reviewed with our daytime radiologist to be sure that their did not appear to be any appendicitis. Abdominal discomfort had a cramping quality. Constitutional: Reports: Fever, Malaise ENT: Reports: Head Aches Skin: Denies: Rash Pulmonary: Denies: Dyspnea, Cough Cardiovascular: Denies: Chest Pain Gastrointestinal: Reports: Nausea, Abdominal Pain Psych: Reports: Anxiety Assessment /Plan Problems (1) Enterocolitis Problem Text: With significant abdominal discomfort and fever. GI panel shows Norovirus. I followed up with more labs and a RUQ US based on patient symptoms; US to be performed tomorrow as he had not been NPO. GI plans imaging. When he met SIRS criteria this a.m., start on abx -- vanco and meropenem. Will reevaluate when cultures return. (2) Norovirus Problem Text: On GI panel. (3) Orthostatic hypotension Problem Text: Likely from dehydration. Home antihypertensives held. Discussed with cardiology per patient request; plan to restart carvedilol first as aishwarya rated. (4) Systolic congestive heart failure Status: Chronic Plan/VTE VTE Prophylaxis Ordered?: Yes VS, I&O, 24H, [facility] Vital Signs/I&O Vital Signs Date Time Temp Pulse Resp B/P (MAP) Pulse Ox O2 Delivery O2 Flow Rate FiO2 10/16/19 00:19 16 10/15/19 23:49 NIPPV (BIPAP/CPAP) 10/15/19 20:00 97.6 60 121/62 (81) 94 10/15/19 01:40 1.0 I&O- Last 24 Hours up to 6 AM 10/16/19 06:00 Intake Total 480 ml Output Total 150 ml Balance 330 ml Laboratory Data 24H LABS Laboratory Tests 2 10/15/19 01:35: Magnesium Level 1.7L, Total Creatine Kinase 103, Creatine Kinase MB 1.4, Creatine Kinase MB Relative Index 1.36, Troponin I < 0.02 10/15/19 06:22: Blood Gas Bicarbonate Standard 21.8L, Arterial Blood pH 7.379, Arterial Blood Partial Pressure CO2 37.4, Arterial Blood Partial Pressure O2 73.0L, Arterial Blood Total CO2 22.7L, Arterial Blood HCO3 21.6L, Arterial Blood Base Excess - 3.1L, Arterial Blood Oxygen Saturation 94.8L 10/15/19 06:30: Immature Granulocyte % (Auto) 0.4, Neutrophils (%) (Auto) 91.1H, Lymphocytes (%) (Auto) 4.2L, Monocytes (%) (Auto) 4.0, Eosinophils (%) (Auto) 0.0, Basophils (%) (Auto) 0.3, Neutrophils # (Auto) 6.4, Lymphocytes # (Auto) 0.3L, Monocytes # (Auto) 0.3, Eosinophils # (Auto) 0.0, Basophils # (Auto) 0.0, Nucleated Red Blood Cells % (auto) 0.0, Anion Gap 7L, Glomerular Filtration Rate 52.5, Lactic Acid Level 1.1, Calcium Level 8.0L, Total Bilirubin 1.4H, Aspartate Amino Transf (AST/SGOT) 30, Alanine Aminotransferase (ALT/SGPT) 49, Alkaline Phosphatase 54, Total Protein 5.7L, Albumin 3.1L, Albumin/Globulin Ratio 1.19, Procalcitonin 0.27 10/15/19 17:13: Anion Gap 3L, Glomerular Filtration Rate 47.7, Lactic Acid Level 0.8, Calcium Level 7.5L, Total Bilirubin 1.4H, Aspartate Amino Transf (AST/SGOT) 32, Alanine Aminotransferase (ALT/SGPT) 47, Alkaline Phosphatase 45, Total Protein 5.1L, Albumin 2.7L, Albumin/Globulin Ratio 1.13, Amylase Level 63, Lipase 124 CBC/BMP Laboratory Tests 10/15/19 06:30 10/15/19 17:13 Microbiology Microbiology 10/15/19 Gastrointestinal Tract Panel (PCR) - Final, Complete Norovirus 10/15/19 Blood Culture, Received Pending 10/15/19 Blood Culture, Received Pending NEERU NEWMAN DO Oct 16, 2019 02:02
[2019-10-16 03:00] VITALS: BP 135/77; PULSE 61
[2019-10-16] MEDS: ONDANSETRON 4 MG TAB (S0181) PO PRN (03:18)
[2019-10-16] MEDS: MORPHINE 2 MG/ML 1ML VIAL (J2270) IV PRN ×3 (03:33→08:03)
[2019-10-16] MEDS: NS 1,000 ML IV SCH ×2 (03:35→22:40)
[2019-10-16 03:54] LABS: HEMATOCRIT 36.7 % (42.0-52.0); HEMOGLOBIN 11.8 g/dl (13.5-17.5); MEAN CORPUSCULAR HEMOGLOBIN 29.6 pg (27.0-33.0); MEAN CORPUSCULAR HGB CONC 32.2 g/dl (32.0-36.5); MEAN CORPUSCULAR VOLUME 92.2 fl (80.0-96.0); PLATELET COUNT, AUTOMATED 145 10^3/uL (150-450); RED BLOOD COUNT 3.98 10^6/uL (4.30-6.10); WHITE BLOOD COUNT 6.2 10^3/uL (4.0-10.0)
[2019-10-16 04:00] VITALS: BP 136/69
[2019-10-16 04:19] LABS: BLOOD UREA NITROGEN 19 MG/DL (7-18); CALCIUM LEVEL 7.8 MG/DL (8.8-10.2); CARBON DIOXIDE LEVEL 24 MEQ/L (21-32); CHLORIDE LEVEL 113 MEQ/L (98-107); CK-MB VALUE MASS 1.8 NG/ML (<3.6); CPK CREATINE PHOSPHOKINASE 131 U/L (39-308); CREATININE FOR GFR 1.25 MG/DL (0.70-1.30); GLOMERULAR FILTRATION RATE > 60.0 (>42); GLUCOSE, FASTING 86 MG/DL (70-100); MAGNESIUM LEVEL 1.9 MG/DL (1.8-2.4); MB/CK RELATIVE INDEX 1.37 (< OR =4); POTASSIUM SERUM 3.8 MEQ/L (3.5-5.1); SODIUM LEVEL 141 MEQ/L (136-145); TROPONIN I < 0.02 NG/ML (< 0.10)
[2019-10-16] MEDS: LEVOTHYROXINE 50MCG TABLET (0.05MG) PO SCH (06:08)
[2019-10-16] MEDS: MEROPENEM INJ 1 GM in IV 1 EA IV SCH (06:08)
[2019-10-16] MEDS ORDERED: E-Z-PAQUE 96% w/w SUSP 176GM BTL As Ordered ONE ×2 (07:59→11:03)
[2019-10-16] MEDS ORDERED: E-Z-GAS II EFFERVESCENT PACKET (SODIUM BICARB./CITRIC ACID/SIMETHICONE) As Ordered ONE (07:59)
[2019-10-16 08:00] VITALS: BP 126/68
[2019-10-16] MEDS ORDERED: E-Z-HD 98% w/w 340GM SUSP BTL As Ordered ONE (08:00)
[2019-10-16] MEDS: VANCOMYCIN HCL 1,000 MG, VIAL MATE ADAPTER 1 EACH in D5W 250 ML IV SCH (08:03)
[2019-10-16] MEDS ORDERED: METOCLOPRAMIDE INJ 10MG/2ML VIAL (J2765) IV ONE (08:15)
[2019-10-16] MEDS: PANTOPRAZOLE 40MG INJ (PROTONIX) (C9113) IV SCH ×2 (08:21→21:09)
[2019-10-16] MEDS ORDERED: MAG SULF 1GM/100ML (MAG RUN) 1 GM in IV 1 EA IV ONE (08:30)
--- NOTE | 2019-10-16 08:30 | IPNPDOC ---
Subjective Date Seen The patient was seen on 10/16/19. Subjective Chief Complaint/HPI continues to have n/v and generalized abdominal pain. n/V not controlled with Zofran Constitutional: Denies: Chills, Fever Pulmonary: Denies: Dyspnea, Cough Cardiovascular: Reports: Chest Pain; Denies: Palpitations Gastrointestinal: Reports: Nausea, Vomiting, Abdominal Pain, Diarrhea Objective Physical Examination General Exam: Positive: Alert (Vomitting uncontrolably ) Chest Exam: Positive: Clear to auscultation; Negative: Rales, Rhonchi, Wheezing Heart Exam: Positive: Rate Normal, Regular Rhythm Abdomen Exam: Positive: Soft, Tenderness (diffuse tenderness) Extremity Exam: Negative: Edema Assessment /Plan Problems (1) Enterocolitis Problem Text: 10/16 - Norovirus per GI panel. Give Reglan this am in effort to control n/v. Zofran not working continue IVF Switch Protonix to IV (2) Gastritis Status: Acute Problem Text: CT abd/pelvis:1. Mucosal enhancement with submucosal edema in the gastric antrum and duodenum, evidence of gastritis and peptic ulcer disease. 2. Mild mucosal enhancement and excessive fluid in the small bowel and proximal colon, correlate for enterocolitis. 10/16 - GI saw patient in consultation - planning UGI series and Liver/GB US this am if can tolerate change Protonix to IV (3) Hypomagnesemia Status: Acute Problem Text: Give IV mag replacement (4) SIRS (systemic inflammatory response syndrome) Status: Resolved Problem Text: Had temp and hypotension Sepsis protocol initiated on admission At this point it seems clear that his temp is from Norovirus. B/c negative BP improved with IVF Stop IV abx (5) CAROL (acute kidney injury) Status: Acute Response to Treatment: Improving Problem Text: Secondary to dehydration from n/v - improving with IVF hydration (6) Norovirus Status: Acute Problem Text: See above (7) Orthostatic hypotension Status: Resolved Problem Text: 10/16 - BP still on low side at times Improving with IVF cont to hold Losartan/Spironolactone and Coreg Discussed with cardiology per patient request; plan to restart carvedilol first as tolerated. (8) Systolic congestive heart failure Status: Chronic (9) CAD (coronary artery disease) Status: Chronic Problem Text: chest pain likely GI related cont usual cardiac meds including ASA/Eliquis/Amiodarone Losartan/Spironolactone and Coreg on hold due to hypotension/CAROL Plan/VTE VTE Prophylaxis Ordered?: Yes VS, I&O, 24H, Fishbone Vital Signs/I&O Vital Signs Date Time Temp Pulse Resp B/P (MAP) Pulse Ox O2 Delivery O2 Flow Rate FiO2 10/16/19 08:03 16 10/16/19 04:00 97.3 60 136/69 (91) 99 Room Air 10/16/19 03:00 2.0 I&O- Last 24 Hours up to 6 AM 10/16/19 06:00 Intake Total 480 ml Output Total 250 ml Balance 230 ml Laboratory Data 24H LABS Laboratory Tests 2 10/15/19 17:13: Anion Gap 3L, Glomerular Filtration Rate 47.7, Lactic Acid Level 0.8, Calcium Level 7.5L, Total Bilirubin 1.4H, Aspartate Amino Transf (AST/SGOT) 32, Alanine Aminotransferase (ALT/SGPT) 47, Alkaline Phosphatase 45, Total Protein 5.1L, Albumin 2.7L, Albumin/Globulin Ratio 1.13, Amylase Level 63, Lipase 124 10/16/19 02:14: Bedside Glucose (Misc Panel) 71L 10/16/19 03:47: Anion Gap 4L, Glomerular Filtration Rate > 60.0, Calcium Level 7.8L, Nucleated Red Blood Cells % (auto) 0.0, Magnesium Level 1.9, Total Creatine Kinase 131, Creatine Kinase MB 1.8, Creatine Kinase MB Relative Index 1.37, Troponin I < 0.02 CBC/BMP Laboratory Tests 10/15/19 17:13 10/16/19 03:47 Microbiology Microbiology 10/15/19 Gastrointestinal Tract Panel (PCR) - Final, Complete Norovirus 10/15/19 Blood Culture - Preliminary, Resulted No growth after 24 hours . All specim... 10/15/19 Blood Culture - Preliminary, Resulted No growth after 24 hours . All specim... LINDA MATAMOROS PA-C Oct 16, 2019 08:30
--- NOTE | 2019-10-16 12:18 | REP ---
RIGHT UPPER QUADRANT SONOGRAPHY: HISTORY: Right upper quadrant pain. Comparison sonography January 26, 2011. Comparison CT study 10/14/2019. SONOGRAPHIC FINDINGS: Scanning through the right upper quadrant of the abdomen demonstrates some hypoechoic sludge in the gallbladder lumen. No stone or polyp is appreciated. No pericholecystic fluid is seen. Common bile duct is at the upper limits of normal measuring 0.66 cm. The gallbladder is mildly distended measuring 10 cm in greatest diameter. No focal hepatic lesion is seen. The pancreas is obscured by abdominal gas. There is a trace of ascitic fluid in the region of Morison's pouch. There are multiple cysts in the right kidney. These measure 2.1, 1.4, and 4.9 cm in greatest diameter. There are smaller cysts in the right kidney. Right renal dimensions are 12.3 x 5.7 x 6.7 cm. No hydronephrosis is seen. IMPRESSION: Somewhat distended gallbladder containing sludge but no evidence of stones. Minimal ascites. Multiple cysts right kidney. Electronically Signed by Arron Hodge MD 10/16/2019 05:39 P
[2019-10-16 14:00] VITALS: BP 140/66
[2019-10-16] MEDS: APIXABAN 5 MG TAB (ELIQUIS) PO SCH ×2 (14:13→21:09)
[2019-10-16] MEDS: AMIODARONE 200 MG TAB (PACERONE) PO SCH (14:13)
[2019-10-16] MEDS: ASPIRIN 81 MG ENTERIC TAB PO SCH (14:14)
[2019-10-16 15:27] VITALS: BP 142/68
[2019-10-16] MEDS ORDERED: GI COCKTAIL 50ML BTL(HYOSCYAMINE/MAALOX/LIDOCAINE VISCOUS)(1:3:1) PO PRN (15:30)
[2019-10-16] MEDS: METOCLOPRAMIDE 5 MG TAB PO SCH ×2 (16:39→21:09)
--- NOTE | 2019-10-16 17:41 | REP ---
UPPER GI SINGLE CONTRAST AND SMALL BOWEL FOLLOW-THROUGH The procedure was performed under the direct supervision of Dr. Hodge. The images were reviewed with Dr. Hodge. Appliance Repairer film shows no organomegaly or pathological masses. The bowel gas pattern is nonspecific. Liquid barium was administered in the right and left lateral recumbent positions. The oral and pharyngeal stages of deglutition are unremarkable. There is cricopharyngeal hypertrophy. There are esophageal transport there are tertiary waves demonstrated. There is no evidence of esophagitis stricture mucosal ring or hiatal hernia. Gastroesophageal reflux is not demonstrated on this examination. On the lateral projection note is made of a band of atelectasis in the lung, however, it could not be determined which lung. Evaluation of the stomach and duodenum are limited as the patient was vomiting before during and after the exam. The stomach is grossly normal. The rugal folds appear smooth and regular. There is no evidence of gastritis neoplasm or ulcer disease. The duodenum is grossly normal. The mucosal folds are smooth and regular. There is no evidence of duodenitis pancreatitis peptic ulcer disease or neoplasm. The visualized portion of the proximal small bowel appears normal in course and caliber. The barium column was followed through the small bowel to the level of the terminal ileum. Small bowel transit time is approximately 2 hours. During fluoroscopy gentle palpation shows all loops are freely movable and pliable. There are no fixed or angulated loops. The small bowel mucosal pattern is normal in course and caliber. There is no transition to suggest a partial small-bowel obstruction. Spot filming of the terminal ileum shows it to be unremarkable. Impression: 1. Cricopharyngeal hypertrophy 2. Tertiary waves. 3. On the lateral projection note is made of a band of atelectasis in the lung, however, it could not be determined which lung. 2.5 minutes of fluoroscopy time was utilized for this procedure. Electronically Signed by JENNIFER Bauman 10/16/2019 05:06 P Electronically Signed by Arron Hodge MD 10/16/2019 05:33 P
[2019-10-16 20:00] VITALS: BP 134/64
[2019-10-16] MEDS: PERCOCET 5MG/325MG TAB PO PRN (21:10)
[2019-10-16] MEDS: ROSUVASTATIN 10 MG TAB (CRESTOR) PO SCH (21:10)
--- NOTE | 2019-10-16 21:15 | ECGEPIP ---
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 No significant change compared with 10/14/2019 at 2138 hrs. Right bundle-branch block with left anterior fascicular block Electronically Signed on 10-16-2019 21:15:23 EST by Wes Stevens
[2019-10-17] VITALS (7 sets, daily range): BP systolic 136–164; BP diastolic 72–80
[2019-10-17] MEDS: LEVOTHYROXINE 50MCG TABLET (0.05MG) PO SCH (05:38)
[2019-10-17] MEDS: PERCOCET 5MG/325MG TAB PO PRN ×2 (05:39→10:26)
[2019-10-17] MEDS: ONDANSETRON 4 MG TAB (S0181) PO PRN (05:42)
[2019-10-17 06:29] LABS: CK-MB VALUE MASS 2.8 NG/ML (<3.6); CPK CREATINE PHOSPHOKINASE 197 U/L (39-308); MB/CK RELATIVE INDEX 1.42 (< OR =4); TROPONIN I 0.04 NG/ML (< 0.10)
[2019-10-17 07:43] LABS: HEMATOCRIT 33.6 % (42.0-52.0); HEMOGLOBIN 11.4 g/dl (13.5-17.5); MEAN CORPUSCULAR HEMOGLOBIN 30.2 pg (27.0-33.0); MEAN CORPUSCULAR HGB CONC 33.9 g/dl (32.0-36.5); MEAN CORPUSCULAR VOLUME 89.1 fl (80.0-96.0); PLATELET COUNT, AUTOMATED 167 10^3/uL (150-450); RED BLOOD COUNT 3.77 10^6/uL (4.30-6.10); WHITE BLOOD COUNT 6.7 10^3/uL (4.0-10.0)
[2019-10-17 07:47] LABS: BLOOD UREA NITROGEN 15 MG/DL (7-18); CALCIUM LEVEL 8.4 MG/DL (8.8-10.2); CARBON DIOXIDE LEVEL 24 MEQ/L (21-32); CHLORIDE LEVEL 108 MEQ/L (98-107); CREATININE FOR GFR 1.13 MG/DL (0.70-1.30); GLOMERULAR FILTRATION RATE > 60.0 (>42); GLUCOSE, FASTING 72 MG/DL (70-100); POTASSIUM SERUM 3.7 MEQ/L (3.5-5.1); SODIUM LEVEL 140 MEQ/L (136-145)
[2019-10-17] MEDS: METOCLOPRAMIDE 5 MG TAB PO SCH ×2 (08:09→12:00)
[2019-10-17] MEDS: AMIODARONE 200 MG TAB (PACERONE) PO SCH (08:09)
[2019-10-17] MEDS: PANTOPRAZOLE 40MG INJ (PROTONIX) (C9113) IV SCH ×2 (08:09→21:14)
[2019-10-17] MEDS: APIXABAN 5 MG TAB (ELIQUIS) PO SCH ×2 (08:09→21:14)
[2019-10-17] MEDS: ASPIRIN 81 MG ENTERIC TAB PO SCH (08:09)
[2019-10-17] MEDS ORDERED: METOCLOPRAMIDE INJ 10MG/2ML VIAL (J2765) IV ONE (09:00)
--- NOTE | 2019-10-17 09:13 | IPNPDOC ---
Subjective Date Seen The patient was seen on 10/17/19. Subjective Chief Complaint/HPI [place] ok until around 2 am - started retching again and has been vomiting bile since then Constitutional: Denies: Chills, Fever Pulmonary: Denies: Dyspnea, Cough Cardiovascular: Denies: Chest Pain Gastrointestinal: Reports: Nausea, Vomiting, Abdominal Pain; Denies: Diarrhea, Constipation Objective Physical Examination General Exam: Positive: Alert (Vomitting uncontrolably ) Chest Exam: Positive: Clear to auscultation; Negative: Rales, Rhonchi, Wheezing Heart Exam: Positive: Rate Normal, Regular Rhythm Abdomen Exam: Positive: Normal bowel sounds, Soft, Tenderness (tender epigastrum and RLQ) Extremity Exam: Negative: Edema Assessment /Plan Problems (1) Enterocolitis Problem Text: 10/17 - Norovirus per GI panel GI has seen patient in consultation - still no note from them po Reglan ac/hs ordered cont IV Protonix On clear liquids, but will Start IVF since continues to vomit and not taking much po UGI with SBFT:. Cricopharyngeal hypertrophy 2. Tertiary waves. 3. On the lateral projection note is made of a band of atelectasis in the lung, however, it could not be determined which lung. Liver Us: Somewhat distended gallbladder containing sludge but no evidence of stones. Minimal ascites. Multiple cysts right kidney. (2) Gastritis Status: Acute Problem Text: CT abd/pelvis:1. Mucosal enhancement with submucosal edema in the gastric antrum and duodenum, evidence of gastritis and peptic ulcer disease. 2. Mild mucosal enhancement and excessive fluid in the small bowel and proximal colon, correlate for enterocolitis. 1 (3) Hypomagnesemia Status: Acute Problem Text: Give IV mag replacement (4) SIRS (systemic inflammatory response syndrome) Status: Resolved Problem Text: Had temp and hypotension Sepsis protocol initiated on admission At this point it seems clear that his temp is from Norovirus. B/c negative BP improved with IVF Stop IV abx (5) CAROL (acute kidney injury) Status: Resolved Response to Treatment: Improving Problem Text: Secondary to dehydration from n/v - improving with IVF hydration (6) Norovirus Status: Acute Problem Text: See above (7) Orthostatic hypotension Status: Resolved Problem Text: 10/16 - BP still on low side at times Improving with IVF cont to hold Losartan/Spironolactone and Coreg Discussed with cardiology per patient request; plan to restart carvedilol first as tolerated. (8) Systolic congestive heart failure Status: Chronic Response to Treatment: Stable (9) CAD (coronary artery disease) Status: Chronic Problem Text: chest pain likely GI related cont usual cardiac meds including ASA/Eliquis/Amiodarone Losartan/Spironolactone and Coreg on hold due to hypotension/CAROL Plan/VTE VTE Prophylaxis Ordered?: Yes VS, I&O, 24H, Fishbone Vital Signs/I&O Vital Signs Date Time Temp Pulse Resp B/P (MAP) Pulse Ox O2 Delivery O2 Flow Rate FiO2 10/17/19 07:59 97.7 60 18 142/72 (95) 93 Room Air 10/16/19 03:00 2.0 I&O- Last 24 Hours up to 6 AM 10/17/19 06:00 Intake Total 300 ml Output Total 500 ml Balance -200 ml Laboratory Data 24H LABS Laboratory Tests 2 10/17/19 05:28: Nucleated Red Blood Cells % (auto) 0.0 10/17/19 05:30: Anion Gap 8, Glomerular Filtration Rate > 60.0, Calcium Level 8.4L, Total Creatine Kinase 197, Creatine Kinase MB 2.8, Creatine Kinase MB Relative Index 1.42, Troponin I 0.04# CBC/BMP Laboratory Tests 10/17/19 05:28 10/17/19 05:30 Microbiology Microbiology 10/16/19 Blood Culture, Received Pending 10/16/19 Blood Culture, Received Pending 10/15/19 Gastrointestinal Tract Panel (PCR) - Final, Complete Norovirus 10/15/19 Blood Culture - Preliminary, Resulted 10/15/19 Blood Culture - Preliminary, Resulted No Growth after 48 hours. All Specime... LINDA MATAMOROS PA-C Oct 17, 2019 09:13
[2019-10-17 09:26] LABS: MAGNESIUM LEVEL 2.2 MG/DL (1.8-2.4)
[2019-10-17] MEDS: KCL 20MEQ IN 0.45NS 1000ML 1,000 ML IV SCH ×2 (10:25→22:14)
[2019-10-17] MEDS: MORPHINE 2 MG/ML 1ML VIAL (J2270) IV PRN ×3 (13:33→18:14)
[2019-10-17] MEDS: METOCLOPRAMIDE INJ 10MG/2ML VIAL (J2765) IV SCH ×3 (14:39→21:15)
[2019-10-17] MEDS ORDERED: METOCLOPRAMIDE INJ 10MG/2ML VIAL (J2765) IV SCH (15:00)
[2019-10-17] MEDS ORDERED: ONDANSETRON 4MG/2ML VIAL (J2405) As Ordered ONE (19:17)
--- NOTE | 2019-10-17 19:29 | ROOR ---
Patient Name: Raymond Henderson Procedure Date: 10/17/2019 6:34 PM Date of : 1945 Age: 74 Room: Main OR Gender: Male Note Status: Finalized Procedure: Upper GI endoscopy Indications: Epigastric abdominal pain, Abdominal pain in the right lower quadrant, Abnormal CT of the GI tract, Nausea with vomiting Providers: Wes VAZQUEZ MD Referring MD: 2. Inpatient 2. Inpatient Requesting Provider: Medicines: Monitored Anesthesia Care Complications: No immediate complications. Procedure: Pre-Anesthesia Assessment: - The heart rate, respiratory rate, oxygen saturations, blood pressure, adequacy of pulmonary ventilation, and response to care were monitored throughout the procedure. The Endoscope was introduced through the mouth, and advanced to the second part of duodenum. The upper GI endoscopy was accomplished without difficulty. The patient tolerated the procedure well. Findings: The esophagus was normal. The stomach was normal. The examined duodenum was normal. Impression: - Normal esophagus. - Normal stomach. - Normal examined duodenum. - No specimens collected. Recommendation: - Use a proton pump inhibitor PO. - Use Levsin, NuLev (hyoscyamine) 0.125 mg 1-2 tabs SL q 4 hours. - (or Dicyclomine 10-20 mg po q 6 hrs prn) - Observe patient's clinical course. - Recommend an anti-emetic/anti-nausea medication. - Return patient to [facility] for ongoing care. - Clear liquid diet. - Advance diet as tolerated. Wes Vazquez MD Wes VAZQUEZ MD 10/17/2019 7:29:29 PM Electronically signed by Wes VAZQUEZ MD Number of Addenda: 0 Note Initiated On: 10/17/2019 6:34 PM Estimated Blood Loss: Estimated blood loss: none.
[2019-10-17] MEDS ORDERED: LR 1,000 ML IV SCH (19:30)
[2019-10-17] MEDS: ROSUVASTATIN 10 MG TAB (CRESTOR) PO SCH (21:14)
[2019-10-18] MEDS: DICYCLOMINE 10 MG CAP PO PRN ×3 (01:28→17:57)
[2019-10-18 01:32] VITALS: BP 152/80
[2019-10-18 04:00] VITALS: BP 137/77
[2019-10-18] MEDS: LEVOTHYROXINE 50MCG TABLET (0.05MG) PO SCH (05:06)
[2019-10-18] MEDS: PERCOCET 5MG/325MG TAB PO PRN ×2 (05:08→09:08)
[2019-10-18 08:00] VITALS: BP 142/72
[2019-10-18] MEDS: PANTOPRAZOLE 40MG INJ (PROTONIX) (C9113) IV SCH ×2 (08:16→20:46)
[2019-10-18] MEDS: ASPIRIN 81 MG ENTERIC TAB PO SCH (08:16)
[2019-10-18] MEDS: METOCLOPRAMIDE INJ 10MG/2ML VIAL (J2765) IV SCH ×4 (08:16→20:47)
[2019-10-18] MEDS: AMIODARONE 200 MG TAB (PACERONE) PO SCH (08:17)
[2019-10-18] MEDS: APIXABAN 5 MG TAB (ELIQUIS) PO SCH ×2 (08:17→20:46)
[2019-10-18] MEDS: KCL 20MEQ IN 0.45NS 1000ML 1,000 ML IV SCH (10:14)
--- NOTE | 2019-10-18 11:20 | IPNPDOC ---
Subjective Date Seen The patient was seen on 10/18/19. Subjective Chief Complaint/HPI Tolerating clear liquids this am and no further abd pain. would like to try some scrambled eggs or toast Constitutional: Denies: Chills, Fever Pulmonary: Denies: Dyspnea, Cough Cardiovascular: Denies: Chest Pain Gastrointestinal: Denies: Nausea, Vomiting, Abdominal Pain, Diarrhea, Constipation Objective Physical Examination General Exam: Positive: Alert, No Acute Distress Chest Exam: Positive: Clear to auscultation; Negative: Rales, Rhonchi, Wheezing Heart Exam: Positive: Rate Normal, Regular Rhythm Abdomen Exam: Positive: Normal bowel sounds, Soft; Negative: Tenderness Extremity Exam: Negative: Edema Assessment /Plan Problems (1) Enterocolitis Response to Treatment: Improving Problem Text: 10/18 - Norovirus per GI panel EGD 10/17 - unrevealing cont Reglan. Bentyl added by GI Advance diet as tolerated. Stop IVF cont IV Protonix UGI with SBFT:. Cricopharyngeal hypertrophy 2. Tertiary waves. 3. On the lateral projection note is made of a band of atelectasis in the lung, however, it could not be determined which lung. Liver Us: Somewhat distended gallbladder containing sludge but no evidence of stones. Minimal ascites. Multiple cysts right kidney. (2) Gastritis Status: Acute Problem Text: CT abd/pelvis:1. Mucosal enhancement with submucosal edema in the gastric antrum and duodenum, evidence of gastritis and peptic ulcer disease. 2. Mild mucosal enhancement and excessive fluid in the small bowel and proximal colon, correlate for enterocolitis. 1 (3) Hypomagnesemia Status: Acute Problem Text: Give IV mag replacement (4) SIRS (systemic inflammatory response syndrome) Status: Resolved Problem Text: Had temp and hypotension Sepsis protocol initiated on admission At this point it seems clear that his temp is from Norovirus. B/c negative BP improved with IVF Stop IV abx (5) CAROL (acute kidney injury) Status: Resolved Response to Treatment: Improving Problem Text: Secondary to dehydration from n/v - improving with IVF hydration (6) Norovirus Status: Acute Problem Text: See above (7) Orthostatic hypotension Status: Resolved Problem Text: 10/16 - BP still on low side at times Improving with IVF cont to hold Losartan/Spironolactone and Coreg Discussed with cardiology per patient request; plan to restart carvedilol first as tolerated. (8) Systolic congestive heart failure Status: Chronic Response to Treatment: Stable (9) CAD (coronary artery disease) Status: Chronic Problem Text: chest pain likely GI related cont usual cardiac meds including ASA/Eliquis/Amiodarone Losartan/Spironolactone and Coreg on hold due to hypotension/CAROL Plan/VTE VTE Prophylaxis Ordered?: Yes Disposition Move to floor - possible d/c in am VS, I&O, 24H, Fishbone Vital Signs/I&O Vital Signs Date Time Temp Pulse Resp B/P (MAP) Pulse Ox O2 Delivery O2 Flow Rate FiO2 10/18/19 09:40 18 Room Air 10/18/19 08:00 98.4 76 142/72 (95) 92 10/16/19 03:00 2.0 I&O- Last 24 Hours up to 6 AM 10/18/19 06:00 Intake Total 1740 ml Output Total 1225 ml Balance 515 ml Laboratory Data Microbiology Microbiology 10/16/19 Blood Culture - Preliminary, Resulted No growth after 24 hours . All specim... 10/16/19 Blood Culture - Preliminary, Resulted No growth after 24 hours . All specim... 10/15/19 Gastrointestinal Tract Panel (PCR) - Final, Complete Norovirus 10/15/19 Blood Culture - Final, Complete Staphylococcus Epidermidis 10/15/19 Blood Culture - Preliminary, Resulted No Growth after 72 hours. All specime... LINDA MATAMOROS PA-C Oct 18, 2019 11:20
[2019-10-18 12:00] VITALS: BP 178/82
[2019-10-18] MEDS: amLODIPine 5 MG TAB PO SCH (14:08)
[2019-10-18 16:00] VITALS: BP 166/88
[2019-10-18 20:00] VITALS: BP 142/71
[2019-10-18] MEDS: ROSUVASTATIN 10 MG TAB (CRESTOR) PO SCH (20:46)
[2019-10-19 04:00] VITALS: BP 128/71
[2019-10-19] MEDS: LEVOTHYROXINE 50MCG TABLET (0.05MG) PO SCH (05:53)
[2019-10-19 06:14] LABS: HEMATOCRIT 35.1 % (42.0-52.0); HEMOGLOBIN 12.3 g/dl (13.5-17.5); MEAN CORPUSCULAR HEMOGLOBIN 30.2 pg (27.0-33.0); MEAN CORPUSCULAR VOLUME 86.2 fl (80.0-96.0); PLATELET COUNT, AUTOMATED 201 10^3/uL (150-450); RED BLOOD COUNT 4.07 10^6/uL (4.30-6.10); WHITE BLOOD COUNT 5.9 10^3/uL (4.0-10.0)
[2019-10-19 06:33] LABS: ALBUMIN 2.7 GM/DL (3.2-5.2); ALT/SGPT 487 U/L (12-78); BILIRUBIN,TOTAL 1.2 MG/DL (0.2-1.0); BLOOD UREA NITROGEN 13 MG/DL (7-18); CALCIUM LEVEL 8.4 MG/DL (8.8-10.2); CARBON DIOXIDE LEVEL 29 MEQ/L (21-32); CHLORIDE LEVEL 104 MEQ/L (98-107); CREATININE FOR GFR 1.18 MG/DL (0.70-1.30); GLOMERULAR FILTRATION RATE > 60.0 (>42); GLUCOSE, FASTING 69 MG/DL (70-100); POTASSIUM SERUM 3.3 MEQ/L (3.5-5.1); SODIUM LEVEL 141 MEQ/L (136-145); TOTAL PROTEIN 5.9 GM/DL (6.4-8.2)
[2019-10-19 08:00] VITALS: BP 153/88
[2019-10-19] MEDS: METOCLOPRAMIDE INJ 10MG/2ML VIAL (J2765) IV SCH (08:29)
[2019-10-19] MEDS: PANTOPRAZOLE 40MG INJ (PROTONIX) (C9113) IV SCH (08:29)
[2019-10-19] MEDS: AMIODARONE 200 MG TAB (PACERONE) PO SCH (08:30)
[2019-10-19 08:32] VITALS: BP 153/88
[2019-10-19] MEDS: ASPIRIN 81 MG ENTERIC TAB PO SCH (08:32)
[2019-10-19] MEDS: APIXABAN 5 MG TAB (ELIQUIS) PO SCH (08:32)
[2019-10-19] MEDS: amLODIPine 5 MG TAB PO SCH (08:32)
[2019-10-19] MEDS ORDERED: DICY1CAP8 PO (10:31)
--- NOTE | 2019-10-19 10:34 | DS.PDOC ---
Discharge Summary General Date of Admission Oct 16, 2019 at 09:31 Date of Discharge 10/19/19 Primary Care Physician: Kelvin Cooper MD Attending Physician: Harsha Taylor MD Specialist/Consultants Involve: ELOISE SOUZA MD Discharge Summary PROCEDURES PERFORMED DURING STAY: [None]. ADMITTING DIAGNOSES: 1. . DISCHARGE DIAGNOSES: 1. . COMPLICATIONS/CHIEF COMPLAINT: Orthostatic Hypotension, Peptic Ulcer Disease. HISTORY OF PRESENT ILLNESS: . HOSPITAL COURSE: . DISCHARGE MEDICATIONS: Please see below. ALLERGIES: Please see below. PHYSICAL EXAMINATION ON DISCHARGE: VITAL SIGNS: Please see below. GENERAL: HEENT: NECK: CARDIOVASCULAR EXAMINATION: RESPIRATORY EXAMINATION: ABDOMINAL EXAMINATION: EXTREMITIES: SKIN: NEUROLOGICAL EXAMINATION: PSYCHIATRIC EXAMINATION: LABORATORY DATA: Please see below. IMAGING: PROGNOSIS: ACTIVITY: [As tolerated]. DIET: DISCHARGE PLAN: DISPOSITION: . DISCHARGE INSTRUCTIONS: 1. . ITEMS TO FOLLOWUP ON ON OUTPATIENT: 1. . DISCHARGE CONDITION: [Stable]. TIME SPENT ON DISCHARGE: Greater than minutes. Vital Signs/I&Os Vital Signs Date Time Temp Pulse Resp B/P (MAP) Pulse Ox O2 Delivery O2 Flow Rate FiO2 10/19/19 08:32 60 153/88 10/19/19 08:00 98.5 20 90 Room Air 10/16/19 03:00 2.0 I&O- Last 24 Hours up to 6 AM 10/19/19 06:00 Intake Total 1230 ml Output Total 2850 ml Balance -1620 ml Laboratory Data Labs 24H Laboratory Tests 2 10/19/19 05:47: Nucleated Red Blood Cells % (auto) 0.0, Anion Gap 8, Glomerular Filtration Rate > 60.0, Calcium Level 8.4L, Total Bilirubin 1.2H, Aspartate Amino Transf (AST/SGOT) 222H, Alanine Aminotransferase (ALT/SGPT) 487H, Alkaline Phosphatase 53, Total Protein 5.9L, Albumin 2.7L, Albumin/Globulin Ratio 0.84L CBC/BMP Laboratory Tests 10/19/19 05:47 Microbiology Microbiology 10/16/19 Blood Culture - Preliminary, Resulted No Growth after 48 hours. All Specime... 10/16/19 Blood Culture - Preliminary, Resulted No Growth after 48 hours. All Specime... 10/15/19 Gastrointestinal Tract Panel (PCR) - Final, Complete Norovirus 10/15/19 Blood Culture - Final, Complete Staphylococcus Epidermidis 10/15/19 Blood Culture - Preliminary, Resulted No Growth after 72 hours. All specime... Discharge Medications Scheduled Amiodarone HCl (Amiodarone HCl) 200 Mg Tablet, 200 MG PO DAILY, (Reported) Apixaban (Eliquis) 5 Mg Tab, 5 MG PO BID, (Reported) Aspirin (Aspirin EC) 81 Mg Tablet.dr, 81 MG PO DAILY, (Reported) Carvedilol (Coreg) 12.5 Mg Tab, 12.5 MG PO DAILY, (Reported) Carvedilol (Carvedilol) 12.5 Mg Tablet, 18.75 MG PO QPM, (Reported) DINNERTIME Cholecalciferol (Vitamin D3) (Vitamin D3) 2,000 Unit Tablet, 2,000 UNIT PO DAILY, (Reported) Cyanocobalamin (Vitamin B-12) (Vitamin B-12) 500 Mcg Tab, 500 MCG PO QPM, (Reported) DINNERTIME Folic Acid (Folic Acid) 0.8 Mg Capsule, 800 MCG PO QPM, (Reported) DINNERTIME Levothyroxine Sodium (Levothyroxine Sodium) 50 Mcg Tab, 50 MCG PO DAILY, (Reported) Losartan Potassium (Cozaar) 25 Mg Tablet, 25 MG PO QPM, (Reported) DINNERTIME Pyridoxine HCl (Vitamin B6) (Vitamin B-6) 50 Mg Tab, 50 MG PO QPM, (Reported) DINNERTIME Rosuvastatin Calcium (Rosuvastatin Calcium) 40 Mg Tab, 40 MG PO QPM, (Reported) DINNERTIME Spironolactone (Spironolactone) 25 Mg Tablet, 12.5 MG PO DAILY, (Reported) Ubidecarenone (Co Q-10) 100 Mg Capsule, 100 MG PO DAILY, (Reported) Scheduled PRN Dicyclomine HCl (Dicyclomine HCl) 10 Mg Capsule, 20 MG PO Q6HP PRN for ABDOMINAL PAIN Nitroglycerin (Nitrostat) 0.4 Mg Tab.subl, 0.4 MG SL NITRO PRN for CHEST PAIN, (Reported) Allergies Coded Allergies: SHEMAR Inhibitors (Verified Allergy, Unknown, 10/14/19) atorvastatin (Verified Allergy, Unknown, 10/14/19) Harsha Taylor MD Oct 19, 2019 10:34
[2019-10-19] MEDS ORDERED: POTASSIUM CHLORIDE 10 MEQ SR TABLET PO ONE (11:00)
== END 2019-10-19 11:26 | disposition home or self-care (01) | DRG 392 ==
LOC: M ED 19:14 → M ED INP 19:15 → M PCU 10-15 05:30 → OBSVTOIN 10-16 09:31
PROVIDERS: ADMIT Internal Medicine; ATTEND Family Medicine
PROC: 0DJ08ZZ Inspection of Upper Intestinal Tract, Via Natural or Artificial Opening Endoscopic (ICD-10-PCS; principal; 2019-10-17 17:00)
DX: A08.11 Acute gastroenteropathy due to Norwalk agent (principal); I50.42 Chronic combined systolic (congestive) and diastolic (congestive) heart failure; N17.9 Acute kidney failure, unspecified; E03.9 Hypothyroidism, unspecified; I95.1 Orthostatic hypotension; Z79.82 Long term (current) use of aspirin; Z79.899 Other long term (current) drug therapy; Z88.8 Allergy status to other drugs, medicaments and biological substances; I25.10 Atherosclerotic heart disease of native coronary artery without angina pectoris; Z95.2 Presence of prosthetic heart valve; I48.0 Paroxysmal atrial fibrillation; I11.0 Hypertensive heart disease with heart failure; Z95.0 Presence of cardiac pacemaker; E78.5 Hyperlipidemia, unspecified; M54.81 Occipital neuralgia; K27.9 Peptic ulcer, site unspecified, unspecified as acute or chronic, without hemorrhage or perforation; E83.42 Hypomagnesemia

== ENCOUNTER → 2019-10-14 | Outpatient (CLI) | payer MEDICARE, OTHER ==
[~2019-10-14] MED LIST changes: +AMIO200T PO; +ASPI-161 PO; +CARV12.5 PO; +COQ1100C5 PO; +COQ150CH PO; +COZA1TAB PO; +D32000TA2 PO; -DIGO0.12 PO; +DIGO0.123 PO; +FOLI800C PO; +NITR4TASL SL; +SPIR-10 PO
[2019-10-14 13:12] LABS: FREE T4 1.01 NG/DL (0.76-1.46); THYROID STIMULATING HORMONE 7.75 uIU/ML (0.358-3.740)
== END ==
LOC: M WUC 09:22
PROVIDERS: ATTEND Family Medicine
DX: E03.9 Hypothyroidism, unspecified (principal)

== ENCOUNTER → 2019-10-31 | Outpatient (REF) | payer MEDICARE, OTHER ==
[~2019-10-31] MED LIST changes: +AMIO200T PO; +ASPI-161 PO; +CARV12.5 PO; +COQ1100C5 PO; +COQ150CH PO; +COZA1TAB PO; +D32000TA2 PO; +DICY1CAP8 PO; +FOLI800C PO; +NITR4TASL SL; +SPIR-10 PO
[2019-10-31 19:22] LABS: ALBUMIN 3.5 GM/DL (3.2-5.2); BILIRUBIN,TOTAL 0.7 MG/DL (0.2-1.0); CALCIUM LEVEL 9.3 MG/DL (8.8-10.2); CREATININE FOR GFR 1.35 MG/DL (0.70-1.30); GLOMERULAR FILTRATION RATE 55.2 (>42); POTASSIUM SERUM 4.4 MEQ/L (3.5-5.1); TOTAL PROTEIN 6.6 GM/DL (6.4-8.2)
== END ==
LOC: M SFHCADAM 15:54
PROVIDERS: ATTEND Physician Assistant Medical
DX: K52.9 Noninfective gastroenteritis and colitis, unspecified (principal)

== ENCOUNTER → 2019-12-09 | Outpatient (CLI) | payer MEDICARE, OTHER | LOC: M WUC 11:58 | PROVIDERS: ATTEND Internal Medicine Cardiovascular Disease | DX: I48.0 Paroxysmal atrial fibrillation (principal); E03.9 Hypothyroidism, unspecified ==

== ENCOUNTER → 2020-02-12 | Outpatient (REF) | payer MEDICARE, OTHER ==
[2020-02-12 13:21] LABS: HEMATOCRIT 38.9 % (42.0-52.0); HEMOGLOBIN 13.1 g/dl (13.5-17.5); MEAN CORPUSCULAR HEMOGLOBIN 30.4 pg (27.0-33.0); MEAN CORPUSCULAR HGB CONC 33.7 g/dl (32.0-36.5); MEAN CORPUSCULAR VOLUME 90.3 fl (80.0-96.0); PLATELET COUNT, AUTOMATED 221 10^3/uL (150-450); RED BLOOD COUNT 4.31 10^6/uL (4.30-6.10); WHITE BLOOD COUNT 4.7 10^3/uL (4.0-10.0)
[2020-02-12 13:42] LABS: ALBUMIN 3.6 GM/DL (3.2-5.2); BILIRUBIN,TOTAL 0.7 MG/DL (0.2-1.0); CALCIUM LEVEL 8.9 MG/DL (8.8-10.2); CHOLESTEROL RISK RATIO 2.412 (<5); CREATININE FOR GFR 1.51 MG/DL (0.70-1.30); FREE T4 1.37 NG/DL (0.76-1.46); GLOMERULAR FILTRATION RATE 48.5 (>42); POTASSIUM SERUM 4.7 MEQ/L (3.5-5.1); PROSTATIC SPECIFIC AG MONITOR 1.72 NG/ML (< 4.00); THYROID STIMULATING HORMONE 1.41 uIU/ML (0.358-3.740); TOTAL PROTEIN 6.4 GM/DL (6.4-8.2)
== END ==
LOC: M SFHCADAM 09:38
PROVIDERS: ATTEND Family Medicine
DX: I11.0 Hypertensive heart disease with heart failure (principal); R97.20 Elevated prostate specific antigen [PSA]; E03.9 Hypothyroidism, unspecified; J01.00 Acute maxillary sinusitis, unspecified; E78.2 Mixed hyperlipidemia
CPT/HCPCS: 80053; 80061; 84153; 84439; 84443; 85027; G0463

== ENCOUNTER 2020-02-20 08:19 | Emergency (ER) | payer MEDICARE, BC, OTHER ==
[2020-02-20 08:45] VITALS: BP 148/84
== END 2020-02-20 09:11 | disposition home or self-care (01) ==
LOC: M ED 08:19
DX: J06.9 Acute upper respiratory infection, unspecified (principal); I25.10 Atherosclerotic heart disease of native coronary artery without angina pectoris; Z79.01 Long term (current) use of anticoagulants; Z79.899 Other long term (current) drug therapy
CPT/HCPCS: 87486; 87581; 87633; 87798; 99282; U0002

== ENCOUNTER → 2020-09-29 | Outpatient (REF) | payer MEDICARE, OTHER ==
[~2020-09-29] MED LIST changes: -AMIO200T PO; +AMIO200T3 PO
[2020-09-29 13:03] LABS: HEMATOCRIT 42.3 % (42.0-52.0); HEMOGLOBIN 13.7 g/dl (13.5-17.5); MEAN CORPUSCULAR HEMOGLOBIN 29.8 pg (27.0-33.0); MEAN CORPUSCULAR HGB CONC 32.4 g/dl (32.0-36.5); MEAN CORPUSCULAR VOLUME 92.2 fl (80.0-96.0); PLATELET COUNT, AUTOMATED 218 10^3/uL (150-450); RED BLOOD COUNT 4.59 10^6/uL (4.30-6.10); WHITE BLOOD COUNT 4.9 10^3/uL (4.0-10.0)
[2020-09-29 13:28] LABS: ALBUMIN 3.6 GM/DL (3.2-5.2); BILIRUBIN,TOTAL 0.8 MG/DL (0.2-1.0); CALCIUM LEVEL 9.3 MG/DL (8.8-10.2); CHOLESTEROL RISK RATIO 2.819 (<5); CREATININE FOR GFR 1.34 MG/DL (0.70-1.30); GLOMERULAR FILTRATION RATE 55.5 (>42); POTASSIUM SERUM 4.3 MEQ/L (3.5-5.1); PROSTATIC SPECIFIC AG MONITOR 2.14 NG/ML (< 4.00); TOTAL PROTEIN 6.7 GM/DL (6.4-8.2)
== END ==
LOC: M SFHCADAM 10:27
PROVIDERS: ATTEND Family Medicine
DX: E78.2 Mixed hyperlipidemia (principal); I50.22 Chronic systolic (congestive) heart failure; R97.20 Elevated prostate specific antigen [PSA]
CPT/HCPCS: 80053; 80061; 84153; 85027; G0463

== ENCOUNTER → 2020-10-06 | Outpatient (CLI) | payer MEDICARE, OTHER ==
--- NOTE | 2020-10-06 10:22 | REP ---
INDICATION: PAROXYSMAL ATRIAL FIBRILLATION, COMBINED HEART FAILURE COMPARISON: 10/14/2019 TECHNIQUE: PA and lateral. FINDINGS: The cardiac silhouette is within normal limits and stable. Dual lead pacemaker again noted. Atherosclerotic changes to the thoracic aorta again identified. Chronic scoliosis noted. The bilateral lung silva demonstrate chronic interstitial changes. No consolidation, effusion, or pneumothorax. IMPRESSION: Chronic changes. No acute cardiopulmonary process appreciated. <Electronically signed by Wilfredo Sy > 10/06/20 [id number]
[2020-10-06 13:12] LABS: BASO % 0.7 % (0.0-1.0); EOS % 0.6 % (0.0-3.0); HEMOGLOBIN 13.3 g/dl (13.5-17.5); LYMPH # 1.7 10^3/uL (1.5-5.0); LYMPH % 31.2 % (24.0-44.0); MEAN CORPUSCULAR HEMOGLOBIN 30.3 pg (27.0-33.0); MEAN CORPUSCULAR HGB CONC 33.3 g/dl (32.0-36.5); MEAN CORPUSCULAR VOLUME 91.1 fl (80.0-96.0); MONO # 0.4 10^3/uL (0.0-0.8); MONO % 6.5 % (0.0-5.0); NEUTROPHILS # 3.3 10^3/uL (1.5-8.5); NEUTROPHILS % 60.8 % (36.0-66.0); PLATELET COUNT, AUTOMATED 207 10^3/uL (150-450); RED BLOOD COUNT 4.39 10^6/uL (4.30-6.10); WHITE BLOOD COUNT 5.4 10^3/uL (4.0-10.0)
[2020-10-06 13:53] LABS: ALBUMIN 3.4 GM/DL (3.2-5.2); BILIRUBIN,TOTAL 1.1 MG/DL (0.2-1.0); CALCIUM LEVEL 9.3 MG/DL (8.8-10.2); CREATININE FOR GFR 1.39 MG/DL (0.70-1.30); GLOMERULAR FILTRATION RATE 53.2 (>42); POTASSIUM SERUM 4.2 MEQ/L (3.5-5.1); THYROID STIMULATING HORMONE 0.774 uIU/ML (0.358-3.740); TOTAL PROTEIN 6.4 GM/DL (6.4-8.2)
== END ==
LOC: M WUC 09:59
PROVIDERS: ATTEND Internal Medicine Cardiovascular Disease
DX: I48.0 Paroxysmal atrial fibrillation (principal); I25.10 Atherosclerotic heart disease of native coronary artery without angina pectoris; I50.42 Chronic combined systolic (congestive) and diastolic (congestive) heart failure; I35.1 Nonrheumatic aortic (valve) insufficiency; I11.0 Hypertensive heart disease with heart failure; E03.9 Hypothyroidism, unspecified

== ENCOUNTER → 2020-10-10 | Outpatient (CLI) | payer MEDICARE, BC, OTHER | LOC: M LABSMTC 08:30 | PROVIDERS: ATTEND Orthopaedic Surgery | DX: Z20.828 Contact with and (suspected) exposure to other viral communicable diseases (principal) ==

== ENCOUNTER → 2020-10-15 | Outpatient (REF) | payer MEDICARE, OTHER | LOC: M LAB REF 13:39 | PROVIDERS: ATTEND Orthopaedic Surgery | DX: D48.5 Neoplasm of uncertain behavior of skin (principal) ==

== ENCOUNTER → 2021-01-12 | Outpatient (CLI) | payer MEDICARE, OTHER ==
[~2021-01-12] MED LIST changes: +PYRI50TA41 PO; -VITA50TA7 PO
--- NOTE | 2021-01-12 11:15 | REP ---
INDICATION: CONTUSION COMPARISON: None. TECHNIQUE: AP, lateral, bilateral oblique views right wrist. FINDINGS: Advanced osteoarthritic degenerative changes are appreciated. Findings include snell carpal subchondral sclerosis, elements of joint space narrowing, small amounts of chondrocalcinosis. Findings are most pronounced at the 1st carpometacarpal joint where chronic subluxation is appreciated along with subchondral sclerosis, joint space obliteration and osteophyte formation. No obvious acute or subacute fracture identified. IMPRESSION: Advanced arthritic changes. No obvious acute/subacute fracture or dislocation. <Electronically signed by Wilfredo Sy > 01/12/21 [id number]
--- NOTE | 2021-01-12 11:17 | REP ---
INDICATION: CONTUSION COMPARISON: None. TECHNIQUE: AP, lateral, bilateral oblique views right hand. FINDINGS: Generalized osteoarthritic degenerative changes through the hand and wrist noted. No evidence for acute or subacute fracture/dislocation. No subcutaneous emphysema or foreign body. IMPRESSION: Generalized osteoarthritic degenerative changes peer. No acute fracture or dislocation. <Electronically signed by Wilfredo Sy > 01/12/21 [id number]
== END ==
LOC: M WUC 10:56
PROVIDERS: ATTEND Physician Assistant
DX: M19.031 Primary osteoarthritis, right wrist (principal); M19.041 Primary osteoarthritis, right hand; S60.221A Contusion of right hand, initial encounter; S60.211A Contusion of right wrist, initial encounter; X58.XXXA Exposure to other specified factors, initial encounter; Y92.9 Unspecified place or not applicable; Y99.9 Unspecified external cause status

== ENCOUNTER → 2021-01-27 | Outpatient (REF) | payer MEDICARE, OTHER ==
[2021-01-27 13:22] LABS: FREE T4 1.19 NG/DL (0.76-1.46); THYROID STIMULATING HORMONE 1.13 uIU/ML (0.358-3.740)
== END ==
LOC: M SFHCADAM 08:48
PROVIDERS: ATTEND Family Medicine
DX: E03.9 Hypothyroidism, unspecified (principal); M67.441 Ganglion, right hand
CPT/HCPCS: 84439; 84443; G0463

== ENCOUNTER → 2021-02-02 | Outpatient (CLI) | payer MEDICARE, BC, OTHER ==
--- NOTE | 2021-02-02 17:55 | REP ---
INDICATION: PAIN IN RT WRIST. COMPARISON: 01/12/2021 right wrist and hand series. TECHNIQUE: Axial soft tissue and bone windows with coronal and sagittal bone window reconstructions provided to the wrist FINDINGS: There is radiad subluxation of the 1st metacarpal on the greater multangular bone with marginal osteophytes and [id number] appearance subchondral cysts are noted in the metacarpal. Anterior osteophyte extending in abutting the proximal articular aspect of the 2nd metacarpal there are cystic changes in the lesser multangular bone, capitate, lunate and the scaphoid couple of tiny cystic areas in both the hamate and triquetrum there also subchondral cysts in the distal ulna and the radial styloid all of these are suggestive of degenerative process there is also narrowing of the MCP joints with some having [id number] appearance and loss of articular cartilage. There also some periarticular calcifications with adjacent erosions in the cortex cortex proximal 1st metacarpal and greater multangular bone. This gives that fragmented appearance of the joint on radiograph. There are vascular calcifications of the radial and ulnar arteries. IMPRESSION: Erosive arthritis involving the carpal bones as described every carpal bone has some lucencies that are cortical and subcortical and this suggests an erosive osteoarthritis. I do not see significant osteoporosis or ulnar deviation. Findings are most severe at the 1st CMC joint. No visible acute fracture. <Electronically signed by Allen Rodriges > 02/02/21 [id number]
== END ==
LOC: M RAD 15:23
PROVIDERS: ATTEND Physician Assistant
DX: M25.531 Pain in right wrist (principal)

== ENCOUNTER → 2021-02-15 | Outpatient (CLI) | payer MEDICARE, BC, OTHER ==
[2021-02-15 12:41] LABS: HEMATOCRIT 39.2 % (42.0-52.0); HEMOGLOBIN 13.2 g/dl (13.5-17.5); MEAN CORPUSCULAR HEMOGLOBIN 30.2 pg (27.0-33.0); MEAN CORPUSCULAR HGB CONC 33.7 g/dl (32.0-36.5); MEAN CORPUSCULAR VOLUME 89.7 fl (80.0-96.0); PLATELET COUNT, AUTOMATED 214 10^3/uL (150-450); RED BLOOD COUNT 4.37 10^6/uL (4.30-6.10); WHITE BLOOD COUNT 6.1 10^3/uL (4.0-10.0)
[2021-02-15 13:06] LABS: ALBUMIN 3.6 GM/DL (3.2-5.2); CALCIUM LEVEL 9.2 MG/DL (8.8-10.2); CREATININE FOR GFR 1.27 MG/DL (0.70-1.30); POTASSIUM SERUM 4.3 MEQ/L (3.5-5.1); THYROID STIMULATING HORMONE 1.96 uIU/ML (0.358-3.740); TOTAL PROTEIN 6.3 GM/DL (6.4-8.2)
== END ==
LOC: M WUC 10:26
PROVIDERS: ATTEND Internal Medicine Cardiovascular Disease
DX: I48.0 Paroxysmal atrial fibrillation (principal); I50.42 Chronic combined systolic (congestive) and diastolic (congestive) heart failure; I11.0 Hypertensive heart disease with heart failure; E03.9 Hypothyroidism, unspecified; M25.531 Pain in right wrist

== ENCOUNTER → 2021-02-15 | Outpatient (CLI) | payer MEDICARE, BC, OTHER ==
[2021-02-15 12:55] LABS: C REACTIVE PROTEIN QUANTITATIV 1.05 MG/DL (0.00-0.30); RHEUMATOID FACTOR QUANT < 10.0 IU/ML (<15.0)
== END ==
LOC: M WUC 10:23
PROVIDERS: ATTEND Physician Assistant
DX: M25.531 Pain in right wrist (principal)

== ENCOUNTER → 2021-07-21 | Outpatient (REF) | payer MEDICARE, OTHER ==
[2021-07-21 13:59] LABS: HEMATOCRIT 38.9 % (42.0-52.0); HEMOGLOBIN 12.8 g/dl (13.5-17.5); MEAN CORPUSCULAR HEMOGLOBIN 30.3 pg (27.0-33.0); MEAN CORPUSCULAR HGB CONC 32.9 g/dl (32.0-36.5); MEAN CORPUSCULAR VOLUME 92.2 fl (80.0-96.0); PLATELET COUNT, AUTOMATED 207 10^3/uL (150-450); RED BLOOD COUNT 4.22 10^6/uL (4.30-6.10); WHITE BLOOD COUNT 5.3 10^3/uL (4.0-10.0)
[2021-07-21 14:35] LABS: BILIRUBIN,TOTAL 1.3 MG/DL (0.2-1.0); CALCIUM LEVEL 9.2 MG/DL (8.8-10.2); CREATININE FOR GFR 1.38 MG/DL (0.70-1.30); GLOMERULAR FILTRATION RATE 53.5 (>42); POTASSIUM SERUM 4.2 MEQ/L (3.5-5.1)
[2021-07-21 14:36] LABS: ALBUMIN 3.6 GM/DL (3.2-5.2); CHOLESTEROL RISK RATIO 2.441 (<5); FREE T4 1.36 NG/DL (0.76-1.46); PROSTATIC SPECIFIC AG MONITOR 2.79 NG/ML (< 4.00); THYROID STIMULATING HORMONE 3.65 uIU/ML (0.358-3.740); TOTAL PROTEIN 6.5 GM/DL (6.4-8.2)
== END ==
LOC: M SFHCADAM 08:42
PROVIDERS: ATTEND Family Medicine
DX: I48.0 Paroxysmal atrial fibrillation (principal); I50.22 Chronic systolic (congestive) heart failure; I25.10 Atherosclerotic heart disease of native coronary artery without angina pectoris; E78.2 Mixed hyperlipidemia; E03.9 Hypothyroidism, unspecified; R97.20 Elevated prostate specific antigen [PSA]
CPT/HCPCS: 80053; 80061; 84153; 84439; 84443; 85027; 90682; G0008; G0463

== ENCOUNTER → 2021-10-07 | Outpatient (CLI) | payer MEDICARE, BC, OTHER ==
[~2021-10-07] MED LIST changes: -AMIO200T3 PO; +AMIO200T49 PO; +LOSA25TA13 PO; -LOSA25TA14 PO
== END ==
LOC: M WUC 09:41
PROVIDERS: ATTEND Internal Medicine Cardiovascular Disease
DX: I50.42 Chronic combined systolic (congestive) and diastolic (congestive) heart failure (principal); I48.0 Paroxysmal atrial fibrillation; I11.0 Hypertensive heart disease with heart failure; Z79.01 Long term (current) use of anticoagulants

== ENCOUNTER → 2021-12-29 | Outpatient (CLI) | payer MEDICARE, BC, OTHER | LOC: M WUC 10:54 | PROVIDERS: ATTEND Physician Assistant | DX: S83.411A Sprain of medial collateral ligament of right knee, initial encounter (principal); X58.XXXA Exposure to other specified factors, initial encounter; Y92.9 Unspecified place or not applicable; R22.41 Localized swelling, mass and lump, right lower limb ==

== ENCOUNTER → 2022-01-05 | Outpatient (CLI) | payer MEDICARE, BC, OTHER | LOC: M PLAIMG 13:38 | PROVIDERS: ATTEND Physician Assistant | DX: S80.11XA Contusion of right lower leg, initial encounter (principal); X58.XXXA Exposure to other specified factors, initial encounter; Y92.9 Unspecified place or not applicable ==

== ENCOUNTER → 2022-01-05 | Outpatient (REF) | payer MEDICARE, BC, OTHER ==
[2022-01-05 19:02] LABS: ALBUMIN 3.4 GM/DL (3.2-5.2); BASO % 0.5 % (0.0-1.0); BILIRUBIN,TOTAL 0.9 MG/DL (0.2-1.0); CALCIUM LEVEL 9.5 MG/DL (8.8-10.2); CREATININE FOR GFR 1.63 MG/DL (0.70-1.30); EOS # 0.2 10^3/uL (0.0-0.5); EOS % 2.5 % (0.0-3.0); GLOMERULAR FILTRATION RATE 44.1 (>42); HEMATOCRIT 39.2 % (42.0-52.0); LYMPH # 1.9 10^3/uL (1.5-5.0); LYMPH % 29.8 % (24.0-44.0); MEAN CORPUSCULAR HGB CONC 33.2 g/dl (32.0-36.5); MEAN CORPUSCULAR VOLUME 90.5 fl (80.0-96.0); MONO # 0.5 10^3/uL (0.0-0.8); MONO % 7.7 % (2.0-8.0); NEUTROPHILS # 3.8 10^3/uL (1.5-8.5); NEUTROPHILS % 59.2 % (36.0-66.0); PLATELET COUNT, AUTOMATED 223 10^3/uL (150-450); POTASSIUM SERUM 4.5 MEQ/L (3.5-5.1); RED BLOOD COUNT 4.33 10^6/uL (4.30-6.10); THYROID STIMULATING HORMONE 3.99 uIU/ML (0.358-3.740); TOTAL PROTEIN 6.7 GM/DL (6.4-8.2); WHITE BLOOD COUNT 6.4 10^3/uL (4.0-10.0)
== END ==
LOC: M WUC 15:42
PROVIDERS: ATTEND Internal Medicine Cardiovascular Disease
DX: I50.42 Chronic combined systolic (congestive) and diastolic (congestive) heart failure (principal); I48.0 Paroxysmal atrial fibrillation; I35.1 Nonrheumatic aortic (valve) insufficiency; E03.9 Hypothyroidism, unspecified; Z79.01 Long term (current) use of anticoagulants

== ENCOUNTER → 2022-03-10 | Outpatient (CLI) | payer MEDICARE, BC, OTHER | LOC: M RAD 10:35 | PROVIDERS: ATTEND Physician Assistant | DX: R05.9 Cough, unspecified (principal); R06.02 Shortness of breath; R50.9 Fever, unspecified ==

== ENCOUNTER 2022-06-03 18:45 | Emergency (ER) | payer MEDICARE, BC, OTHER ==
[~2022-06-03] VITALS: Ht 170.2 cm; Wt 71.2 kg
[2022-06-03 19:40] LABS: BASO % 0.5 % (0.0-1.0); EOS % 0.2 % (0.0-3.0); HEMATOCRIT 40.1 % (42.0-52.0); HEMOGLOBIN 13.6 g/dl (13.5-17.5); LYMPH # 1.4 10^3/uL (1.5-5.0); MEAN CORPUSCULAR HEMOGLOBIN 30.5 pg (27.0-33.0); MEAN CORPUSCULAR HGB CONC 33.9 g/dl (32.0-36.5); MEAN CORPUSCULAR VOLUME 89.9 fl (80.0-96.0); MONO # 0.3 10^3/uL (0.0-0.8); MONO % 5.1 % (2.0-8.0); NEUTROPHILS # 4.3 10^3/uL (1.5-8.5); PLATELET COUNT, AUTOMATED 224 10^3/uL (150-450); RED BLOOD COUNT 4.46 10^6/uL (4.30-6.10); WHITE BLOOD COUNT 6.1 10^3/uL (4.0-10.0)
[2022-06-03 20:10] LABS: CK-MB VALUE MASS < 1.0 NG/ML (<3.6); CPK CREATINE PHOSPHOKINASE 110 U/L (39-308); MB/CK RELATIVE INDEX 0.91 (< OR =4)
[2022-06-03 20:21] LABS: CALCIUM LEVEL 9.7 MG/DL (8.8-10.2); CREATININE FOR GFR 1.46 MG/DL (0.70-1.30); POTASSIUM SERUM 4.5 MEQ/L (3.5-5.1)
[2022-06-03 21:49] LABS: ALBUMIN 3.5 GM/DL (3.2-5.2); BILIRUBIN,DIRECT 0.3 MG/DL (0.0-0.2); BILIRUBIN,TOTAL 1.2 MG/DL (0.2-1.0); TOTAL PROTEIN 6.7 GM/DL (6.4-8.2)
[2022-06-03 21:52] LABS: CK-MB VALUE MASS < 1.0 NG/ML (<3.6); CPK CREATINE PHOSPHOKINASE 108 U/L (39-308); MB/CK RELATIVE INDEX 0.93 (< OR =4)
[2022-06-03 22:35] VITALS: BP 137/77
== END 2022-06-03 22:38 | disposition home or self-care (01) ==
LOC: M ED 18:45
DX: R07.9 Chest pain, unspecified (principal); I49.8 Other specified cardiac arrhythmias; I25.2 Old myocardial infarction; F33.1 Major depressive disorder, recurrent, moderate; I10 Essential (primary) hypertension; E78.5 Hyperlipidemia, unspecified; Z86.79 Personal history of other diseases of the circulatory system; Z95.5 Presence of coronary angioplasty implant and graft; Z88.8 Allergy status to other drugs, medicaments and biological substances; Z79.899 Other long term (current) drug therapy

== ENCOUNTER → 2022-06-24 | Outpatient (CLI) | payer MEDICARE, BC, OTHER ==
[2022-06-24 16:46] LABS: HEMATOCRIT 40.8 % (42.0-52.0); HEMOGLOBIN 13.2 g/dl (13.5-17.5); MEAN CORPUSCULAR HEMOGLOBIN 29.7 pg (27.0-33.0); MEAN CORPUSCULAR HGB CONC 32.4 g/dl (32.0-36.5); MEAN CORPUSCULAR VOLUME 91.7 fl (80.0-96.0); PLATELET COUNT, AUTOMATED 234 10^3/uL (150-450); RED BLOOD COUNT 4.45 10^6/uL (4.30-6.10); WHITE BLOOD COUNT 5.8 10^3/uL (4.0-10.0)
[2022-06-24 17:22] LABS: ALBUMIN 3.8 GM/DL (3.2-5.2); BILIRUBIN,TOTAL 1.1 MG/DL (0.2-1.0); CALCIUM LEVEL 9.5 MG/DL (8.8-10.2); CHOLESTEROL RISK RATIO 2.226 (<5); CREATININE FOR GFR 1.64 MG/DL (0.70-1.30); FREE T4 1.32 NG/DL (0.76-1.46); GLOMERULAR FILTRATION RATE 43.7 (>42); POTASSIUM SERUM 5.1 MEQ/L (3.5-5.1); THYROID STIMULATING HORMONE 2.46 uIU/ML (0.358-3.740); TOTAL PROTEIN 6.8 GM/DL (6.4-8.2)
== END ==
LOC: M WUC 11:32
PROVIDERS: ATTEND Family Medicine
DX: E78.2 Mixed hyperlipidemia (principal); I48.0 Paroxysmal atrial fibrillation; N18.32 Chronic kidney disease, stage 3b; E03.9 Hypothyroidism, unspecified; I11.0 Hypertensive heart disease with heart failure

== ENCOUNTER → 2022-07-15 | Outpatient (REF) | payer MEDICARE, OTHER ==
[2022-07-15 16:53] LABS: BASO % 0.7 % (0.0-1.0); HEMATOCRIT 38.7 % (42.0-52.0); HEMOGLOBIN 12.5 g/dl (13.5-17.5); LYMPH # 1.7 10^3/uL (1.5-5.0); MEAN CORPUSCULAR HEMOGLOBIN 30.3 pg (27.0-33.0); MEAN CORPUSCULAR HGB CONC 32.3 g/dl (32.0-36.5); MEAN CORPUSCULAR VOLUME 93.7 fl (80.0-96.0); MONO # 0.4 10^3/uL (0.0-0.8); MONO % 6.6 % (2.0-8.0); NEUTROPHILS # 3.3 10^3/uL (1.5-8.5); NEUTROPHILS % 60.5 % (36.0-66.0); PLATELET COUNT, AUTOMATED 215 10^3/uL (150-450); RED BLOOD COUNT 4.13 10^6/uL (4.30-6.10); WHITE BLOOD COUNT 5.4 10^3/uL (4.0-10.0)
[2022-07-15 17:30] LABS: ALBUMIN 3.6 GM/DL (3.2-5.2); BILIRUBIN,TOTAL 0.8 MG/DL (0.2-1.0); CALCIUM LEVEL 9.3 MG/DL (8.8-10.2); CREATININE FOR GFR 1.59 MG/DL (0.70-1.30); GLOMERULAR FILTRATION RATE 45.3 (>42); POTASSIUM SERUM 4.7 MEQ/L (3.5-5.1); THYROID STIMULATING HORMONE 1.15 uIU/ML (0.358-3.740); TOTAL PROTEIN 6.6 GM/DL (6.4-8.2)
== END ==
LOC: M LABWUC 16:26
PROVIDERS: ATTEND Internal Medicine Cardiovascular Disease
DX: I50.42 Chronic combined systolic (congestive) and diastolic (congestive) heart failure (principal); I48.0 Paroxysmal atrial fibrillation; I35.1 Nonrheumatic aortic (valve) insufficiency; E03.2 Hypothyroidism due to medicaments and other exogenous substances; I11.0 Hypertensive heart disease with heart failure

== ENCOUNTER → 2023-02-14 | Outpatient (REF) | payer MEDICARE, OTHER ==
[2023-02-14 14:57] LABS: HEMATOCRIT 41.5 % (42.0-52.0); HEMOGLOBIN 13.6 g/dl (13.5-17.5); MEAN CORPUSCULAR HEMOGLOBIN 30.3 pg (27.0-33.0); MEAN CORPUSCULAR HGB CONC 32.8 g/dl (32.0-36.5); MEAN CORPUSCULAR VOLUME 92.4 fl (80.0-96.0); PLATELET COUNT, AUTOMATED 220 10^3/uL (150-450); RED BLOOD COUNT 4.49 10^6/uL (4.30-6.10); WHITE BLOOD COUNT 5.6 10^3/uL (4.0-10.0)
[2023-02-14 15:24] LABS: ALBUMIN 3.5 G/DL (3.2-5.2); BILIRUBIN,TOTAL 0.9 MG/DL (0.3-1.2); CALCIUM LEVEL 9.1 MG/DL (8.3-10.6); CHOLESTEROL RISK RATIO 2.59 (<5); CREATININE FOR GFR 1.56 MG/DL (0.70-1.30); GLOMERULAR FILTRATION RATE 46.3 (>42); HDL CHOLESTEROL 68.2 MG/DL (>40); LDL CHOLESTEROL 86.4 MG/DL (<100); NON-HDL-C 108.8 MG/DL; POTASSIUM SERUM 4.4 MMOL/L (3.5-5.1); TOTAL PROTEIN 6.4 G/DL (5.7-8.2)
[2023-02-14 15:27] LABS: FREE T4 1.51 NG/DL (0.89-1.76); THYROID STIMULATING HORMONE 0.243 uIU/ML (0.55-4.78)
[2023-02-14 16:13] LABS: HEMOGLOBIN A1c 5.2 % (4.0-6.0)
== END ==
LOC: M SFHCADAM 11:26
PROVIDERS: ATTEND Family Medicine
DX: E03.9 Hypothyroidism, unspecified (principal); E78.2 Mixed hyperlipidemia; I48.0 Paroxysmal atrial fibrillation; I50.22 Chronic systolic (congestive) heart failure; N18.32 Chronic kidney disease, stage 3b; Z13.1 Encounter for screening for diabetes mellitus; Z12.5 Encounter for screening for malignant neoplasm of prostate; Z79.899 Other long term (current) drug therapy
CPT/HCPCS: 80053; 80061; 83036; 84439; 84443; 85027; G0103

== ENCOUNTER → 2023-03-14 | Outpatient (CLI) | payer MEDICARE, BC, OTHER | LOC: M RAD 07:54 | PROVIDERS: ATTEND Family Medicine | DX: R79.89 Other specified abnormal findings of blood chemistry (principal) ==

== ENCOUNTER → 2023-03-28 | Outpatient (REF) | payer MEDICARE, OTHER ==
[2023-03-28 14:50] LABS: ALBUMIN 3.5 G/DL (3.2-5.2); BILIRUBIN,DIRECT 0.2 MG/DL (<0.4); BILIRUBIN,TOTAL 0.8 MG/DL (0.3-1.2); TOTAL PROTEIN 6.2 G/DL (5.7-8.2)
== END ==
LOC: M SFHCADAM 09:15
PROVIDERS: ATTEND Family Medicine
DX: R79.89 Other specified abnormal findings of blood chemistry (principal); I50.42 Chronic combined systolic (congestive) and diastolic (congestive) heart failure

== ENCOUNTER → 2023-07-20 | Outpatient (CLI) | payer MEDICARE, OTHER ==
[~2023-07-20] MED LIST changes: -COZA1TAB PO; +LOSA-527 PO
== END ==
LOC: M ADAMS 13:58
PROVIDERS: ATTEND Family Medicine
DX: R63.4 Abnormal weight loss (principal); R05.3 Chronic cough; Z95.0 Presence of cardiac pacemaker

== ENCOUNTER → 2023-07-20 | Outpatient (REF) | payer MEDICARE, OTHER ==
[2023-07-20 16:54] LABS: HEMATOCRIT 38.5 % (42.0-52.0); HEMOGLOBIN 12.6 g/dl (13.5-17.5); MEAN CORPUSCULAR HEMOGLOBIN 30.1 pg (27.0-33.0); MEAN CORPUSCULAR HGB CONC 32.7 g/dl (32.0-36.5); MEAN CORPUSCULAR VOLUME 92.1 fl (80.0-96.0); PLATELET COUNT, AUTOMATED 244 10^3/uL (150-450); RED BLOOD COUNT 4.18 10^6/uL (4.30-6.10)
[2023-07-20 16:56] LABS: HEMOGLOBIN A1c 5.7 % (4.0-6.0)
[2023-07-20 17:05] LABS: C REACTIVE PROTEIN QUANTITATIV < 0.40 MG/DL (<1.0)
[2023-07-20 17:07] LABS: ALBUMIN 3.5 G/DL (3.2-5.2); ALKALINE PHOSPHATASE 85 U/L (46-116); ALT/SGPT 121 U/L (7.0-40); AST/SGOT 101 U/L (<34); BILIRUBIN,TOTAL 0.8 MG/DL (0.3-1.2); BLOOD UREA NITROGEN 28 MG/DL (9-23); CALCIUM LEVEL 9.2 MG/DL (8.3-10.6); CARBON DIOXIDE LEVEL 27 MMOL/L (20-31); CHLORIDE LEVEL 107 MMOL/L (98-107); CHOLESTEROL LEVEL 183 MG/DL (<200); CHOLESTEROL RISK RATIO 2.57 (<5); CREATININE FOR GFR 1.72 MG/DL (0.70-1.30); GLOMERULAR FILTRATION RATE 41.3 (>42); GLUCOSE, FASTING 76 MG/DL (74-106); LDL CHOLESTEROL 94.8 MG/DL (<100); MAGNESIUM LEVEL 2.1 MG/DL (1.8-2.4); POTASSIUM SERUM 4.7 MMOL/L (3.5-5.1); SODIUM LEVEL 141 MMOL/L (136-145); TOTAL PROTEIN 6.5 G/DL (5.7-8.2); TRIGLYCERIDES LEVEL 86 MG/DL (<150)
[2023-07-20 17:08] LABS: FREE T4 1.48 NG/DL (0.89-1.76)
[2023-07-20 17:12] LABS: INR 1.2; PROTHROMBIN TIME 14.9 SECONDS (12.5-14.5)
== END ==
LOC: M SFHCADAM 13:33
PROVIDERS: ATTEND Family Medicine
DX: E03.9 Hypothyroidism, unspecified (principal); R79.89 Other specified abnormal findings of blood chemistry; R63.4 Abnormal weight loss; I50.22 Chronic systolic (congestive) heart failure; N18.32 Chronic kidney disease, stage 3b; W57.XXXA Bitten or stung by nonvenomous insect and other nonvenomous arthropods, initial encounter; I11.0 Hypertensive heart disease with heart failure; E78.2 Mixed hyperlipidemia; I48.0 Paroxysmal atrial fibrillation

== ENCOUNTER → 2023-08-14 | Outpatient (CLI) | payer MEDICARE, BC, OTHER ==
[2023-08-14 12:50] LABS: BASO % 0.7 % (0.0-1.0); EOS # 0.2 10^3/uL (0.0-0.5); EOS % 2.7 % (0.0-3.0); HEMATOCRIT 39.3 % (42.0-52.0); HEMOGLOBIN 13.1 g/dl (13.5-17.5); LYMPH # 1.8 10^3/uL (1.5-5.0); LYMPH % 32.7 % (24.0-44.0); MEAN CORPUSCULAR HEMOGLOBIN 30.3 pg (27.0-33.0); MEAN CORPUSCULAR HGB CONC 33.3 g/dl (32.0-36.5); MONO # 0.4 10^3/uL (0.0-0.8); MONO % 7.4 % (2.0-8.0); NEUTROPHILS # 3.1 10^3/uL (1.5-8.5); NEUTROPHILS % 56.1 % (36.0-66.0); PLATELET COUNT, AUTOMATED 251 10^3/uL (150-450); RED BLOOD COUNT 4.32 10^6/uL (4.30-6.10); WHITE BLOOD COUNT 5.5 10^3/uL (4.0-10.0)
[2023-08-14 13:15] LABS: ALBUMIN 3.7 G/DL (3.2-5.2); ALKALINE PHOSPHATASE 94 U/L (46-116); ALT/SGPT 146 U/L (7.0-40); AST/SGOT 95 U/L (<34); BILIRUBIN,DIRECT 0.3 MG/DL (<0.4); BLOOD UREA NITROGEN 35 MG/DL (9-23); CREATININE FOR GFR 1.62 MG/DL (0.70-1.30); GLOMERULAR FILTRATION RATE 44.2 (>42); IRON (FE) 98 UG/DL (65-175); TOTAL IRON BINDING CAPACITY 377 UG/DL (250-425); TOTAL PROTEIN 6.6 G/DL (5.7-8.2)
[2023-08-14 13:50] LABS: HEPATITIS B CORE ANTIBODY IGM NEGATIVE (NEGATIVE); HEPATITIS C VIRUS ABY INDEX 0.06 INDEX (<0.8)
[2023-08-16 16:12] LABS: ANCA-ATYPICAL <1:20 titer (Neg:<1:20); ANTI-MITOCHONDRIAL ANTIBODY <20.0 Units (0.0-20.0); ANTINUCLEAR ANTIBODIES DIRECT Negative (Negative); CYTOPLASMIC NEUTROP AB ANCA-C <1:20 titer (Neg:<1:20); LIVER-KIDNEY MICROSOMAL ABY <20.1 Units (0.0-20.0); PERINUCLEAR AB ANCA-P <1:20 titer (Neg:<1:20)
== END ==
LOC: M WUC 09:23
PROVIDERS: ATTEND Internal Medicine Gastroenterology
DX: R74.01 Elevation of levels of liver transaminase levels (principal); Z79.01 Long term (current) use of anticoagulants

== ENCOUNTER 2023-10-06 10:22 | Day surgery (SDC) | payer MEDICARE, BC, OTHER ==
[~2023-10-06] VITALS: Ht 167.6 cm; Wt 68.3 kg
[~2023-10-06 10:22] MED LIST changes: +VITA100093 PO
[2023-10-06] MEDS ORDERED: LIDOCAINE 2% 100MG/5ML SDV (FOR ANES.) As Ordered ONE (11:57)
[2023-10-06] MEDS ORDERED: propofoL 200 MG/20 ML VIAL As Ordered ONE ×2 (11:57→12:26)
[2023-10-06] MEDS ORDERED: ePHEDrine SULFATE 25 MG/5 ML(5MG/ML) SYRINGE As Ordered ONE (12:43)
[2023-10-06 13:20] VITALS: BP 116/70; O2SAT 94
== END 2023-10-06 13:41 | disposition home or self-care (01) ==
LOC: M OPP 10:22
PROVIDERS: ATTEND Internal Medicine Gastroenterology
DX: K57.30 Diverticulosis of large intestine without perforation or abscess without bleeding (principal); K64.8 Other hemorrhoids; K59.00 Constipation, unspecified; Z98.0 Intestinal bypass and anastomosis status; R63.4 Abnormal weight loss; K31.7 Polyp of stomach and duodenum; K31.89 Other diseases of stomach and duodenum; K44.9 Diaphragmatic hernia without obstruction or gangrene; I50.9 Heart failure, unspecified; G47.30 Sleep apnea, unspecified; Z99.89 Dependence on other enabling machines and devices; Z86.74 Personal history of sudden cardiac arrest; Z95.5 Presence of coronary angioplasty implant and graft; Z95.810 Presence of automatic (implantable) cardiac defibrillator; Z79.01 Long term (current) use of anticoagulants; Z79.02 Long term (current) use of antithrombotics/antiplatelets; Z79.52 Long term (current) use of systemic steroids; Z79.82 Long term (current) use of aspirin; Z79.83 Long term (current) use of bisphosphonates; Z79.890 Hormone replacement therapy; Z79.899 Other long term (current) drug therapy; Z88.8 Allergy status to other drugs, medicaments and biological substances

== ENCOUNTER → 2023-10-12 | Outpatient (REF) | payer MEDICARE, BC, OTHER ==
[2023-10-12 13:46] LABS: BASO % 0.9 % (0.0-1.0); EOS # 0.1 10^3/uL (0.0-0.5); EOS % 1.5 % (0.0-3.0); HEMATOCRIT 37.5 % (42.0-52.0); HEMOGLOBIN 12.2 g/dl (13.5-17.5); LYMPH # 1.3 10^3/uL (1.5-5.0); MEAN CORPUSCULAR HEMOGLOBIN 30.6 pg (27.0-33.0); MEAN CORPUSCULAR HGB CONC 32.5 g/dl (32.0-36.5); MONO # 0.3 10^3/uL (0.0-0.8); MONO % 6.4 % (2.0-8.0); NEUTROPHILS # 2.9 10^3/uL (1.5-8.5); NEUTROPHILS % 62.8 % (36.0-66.0); PLATELET COUNT, AUTOMATED 222 10^3/uL (150-450); RED BLOOD COUNT 3.99 10^6/uL (4.30-6.10); WHITE BLOOD COUNT 4.7 10^3/uL (4.0-10.0)
[2023-10-12 14:11] LABS: ALBUMIN 3.4 G/DL (3.2-5.2); BILIRUBIN,TOTAL 0.9 MG/DL (0.3-1.2); CALCIUM LEVEL 9.3 MG/DL (8.3-10.6); CREATININE FOR GFR 1.58 MG/DL (0.70-1.30); GLOMERULAR FILTRATION RATE 45.5 (>42); POTASSIUM SERUM 4.4 MMOL/L (3.5-5.1); TOTAL PROTEIN 6.2 G/DL (5.7-8.2)
[2023-10-12 14:13] LABS: THYROID STIMULATING HORMONE 2.341 uIU/ML (0.55-4.78)
== END ==
LOC: M WUC 12:01
PROVIDERS: ATTEND Internal Medicine Cardiovascular Disease
DX: I50.42 Chronic combined systolic (congestive) and diastolic (congestive) heart failure (principal); I48.0 Paroxysmal atrial fibrillation; I25.10 Atherosclerotic heart disease of native coronary artery without angina pectoris; I35.1 Nonrheumatic aortic (valve) insufficiency; I11.0 Hypertensive heart disease with heart failure

== ENCOUNTER → 2023-11-09 | Outpatient (CLI) | payer MEDICARE, BC, OTHER | LOC: M RAD 10:34 | PROVIDERS: ATTEND Family Medicine | DX: I73.9 Peripheral vascular disease, unspecified (principal); M71.21 Synovial cyst of popliteal space [Baker], right knee ==

== ENCOUNTER → 2024-02-08 | Outpatient (CLI) | payer MEDICARE, BC, OTHER ==
[~2024-02-08] MED LIST changes: -ASPI-161 PO; +ASPI-615 PO
[2024-02-08 18:12] LABS: HEMOGLOBIN 13.9 g/dl (13.5-17.5); MEAN CORPUSCULAR HGB CONC 33.1 g/dl (32.0-36.5); MEAN CORPUSCULAR VOLUME 90.5 fl (80.0-96.0); PLATELET COUNT, AUTOMATED 227 10^3/uL (150-450); RED BLOOD COUNT 4.64 10^6/uL (4.30-6.10); WHITE BLOOD COUNT 5.3 10^3/uL (4.0-10.0)
[2024-02-08 18:27] LABS: HEMOGLOBIN A1c 5.2 % (4.0-6.0)
[2024-02-08 18:34] LABS: PSA SCREENING 1.45 NG/ML (< 4.00)
[2024-02-08 18:38] LABS: C REACTIVE PROTEIN QUANTITATIV < 0.40 MG/DL (<1.0); THYROID STIMULATING HORMONE 0.746 uIU/ML (0.55-4.78)
[2024-02-08 18:39] LABS: RHEUMATOID FACTOR QUANT < 3.5 IU/ML (<14)
[2024-02-08 18:40] LABS: ALBUMIN 3.6 G/DL (3.2-5.2); ALKALINE PHOSPHATASE 87 U/L (46-116); ALT/SGPT 155 U/L (7.0-40); AST/SGOT 153 U/L (<34); BILIRUBIN,TOTAL 0.8 MG/DL (0.3-1.2); BLOOD UREA NITROGEN 24 MG/DL (9-23); CALCIUM LEVEL 9.5 MG/DL (8.3-10.6); CARBON DIOXIDE LEVEL 25 MMOL/L (20-31); CHLORIDE LEVEL 108 MMOL/L (98-107); CHOLESTEROL LEVEL 172 MG/DL (<200); CHOLESTEROL RISK RATIO 2.41 (<5); CREATININE FOR GFR 1.55 MG/DL (0.70-1.30); FREE T4 1.61 NG/DL (0.89-1.76); GLOMERULAR FILTRATION RATE 46.5 (>42); GLUCOSE, FASTING 81 MG/DL (74-106); HDL CHOLESTEROL 71.2 MG/DL (>40); LDL CHOLESTEROL 76.2 MG/DL (<100); MAGNESIUM LEVEL 1.9 MG/DL (1.8-2.4); NON-HDL-C 100.8 MG/DL; POTASSIUM SERUM 4.7 MMOL/L (3.5-5.1); SODIUM LEVEL 140 MMOL/L (136-145); TOTAL PROTEIN 6.7 G/DL (5.7-8.2); TRIGLYCERIDES LEVEL 123 MG/DL (<150)
[2024-02-08 18:41] LABS: ERYTHROCYTE SEDIMENTATION RATE 39 mm/hr (0-20)
== END ==
LOC: M ADAMS 11:58
PROVIDERS: ATTEND Family Medicine
DX: M19.041 Primary osteoarthritis, right hand (principal); M19.042 Primary osteoarthritis, left hand; I10 Essential (primary) hypertension; E78.2 Mixed hyperlipidemia; B34.9 Viral infection, unspecified; I73.9 Peripheral vascular disease, unspecified; E03.9 Hypothyroidism, unspecified; I48.0 Paroxysmal atrial fibrillation; Z12.5 Encounter for screening for malignant neoplasm of prostate; Z13.1 Encounter for screening for diabetes mellitus
CPT/HCPCS: 73120; 80053; 80061; 83036; 83735; 84439; 84443; 85027; 85652; 86140; 86431; G0103

== ENCOUNTER 2024-03-11 13:41 | Emergency (ER) | payer MEDICARE, BC, OTHER ==
[~2024-03-11] VITALS: Ht 167.6 cm; Wt 68.2 kg
[~2024-03-11 13:41] MED LIST changes: -ROSU40TA4 PO; +ROSU40TA63 PO
[2024-03-11 14:27] LABS: BASO % 0.8 % (0.0-1.0); EOS # 0.1 10^3/uL (0.0-0.5); EOS % 2.1 % (0.0-3.0); HEMATOCRIT 37.6 % (42.0-52.0); HEMOGLOBIN 12.8 g/dl (13.5-17.5); LYMPH # 1.8 10^3/uL (1.5-5.0); LYMPH % 35.5 % (24.0-44.0); MEAN CORPUSCULAR HEMOGLOBIN 29.8 pg (27.0-33.0); MEAN CORPUSCULAR VOLUME 87.6 fl (80.0-96.0); MONO # 0.4 10^3/uL (0.0-0.8); MONO % 8.4 % (2.0-8.0); NEUTROPHILS # 2.7 10^3/uL (1.5-8.5); NEUTROPHILS % 53.2 % (36.0-66.0); PLATELET COUNT, AUTOMATED 209 10^3/uL (150-450); RED BLOOD COUNT 4.29 10^6/uL (4.30-6.10); WHITE BLOOD COUNT 5.1 10^3/uL (4.0-10.0)
[2024-03-11 14:39] LABS: INR 1.16; PARTIAL THROMBOPLASTIN TIME 23.9 SECONDS (24.8-34.2); PROTHROMBIN TIME 14.5 SECONDS (12.5-14.5)
[2024-03-11 15:09] LABS: CK-MB VALUE MASS 1.6 NG/ML (<3.6); CPK CREATINE PHOSPHOKINASE 156 U/L (46-171); MB/CK RELATIVE INDEX 1.02 (< OR =4)
[2024-03-11 16:02] LABS: CALCIUM LEVEL 8.6 MG/DL (8.3-10.6); CK-MB VALUE MASS 1.7 NG/ML (<3.6); CREATININE FOR GFR 1.43 MG/DL (0.70-1.30); MB/CK RELATIVE INDEX 1.14 (< OR =4); POTASSIUM SERUM 5.7 MMOL/L (3.5-5.1)
[2024-03-11 16:17] LABS: D-DIMER QUANT 1.09 ug/mL (<0.5)
[2024-03-11 16:22] LABS: C REACTIVE PROTEIN QUANTITATIV < 0.40 MG/DL (<1.0)
[2024-03-11] MEDS ORDERED: ISOVUE-370 76% 100ML VIAL As Ordered ONE (16:24)
[2024-03-11 16:31] LABS: ALBUMIN 3.4 G/DL (3.2-5.2); ALKALINE PHOSPHATASE 76 U/L (46-116); ALT/SGPT 106 U/L (7.0-40); AST/SGOT 122 U/L (<34); BILIRUBIN,DIRECT 0.2 MG/DL (<0.4); BILIRUBIN,TOTAL 0.8 MG/DL (0.3-1.2); TOTAL PROTEIN 6.4 G/DL (5.7-8.2)
[2024-03-11 19:15] VITALS: BP 142/76; TEMP 98; O2SAT 95
== END 2024-03-11 19:33 | disposition short-term general hospital (02) ==
LOC: M ED 13:41 → EDBD 13:41 → M ED 19:33
DX: I20.0 Unstable angina (principal); J98.11 Atelectasis; N28.1 Cyst of kidney, acquired; I10 Essential (primary) hypertension; E78.5 Hyperlipidemia, unspecified; G47.33 Obstructive sleep apnea (adult) (pediatric); F10.10 Alcohol abuse, uncomplicated; Z86.74 Personal history of sudden cardiac arrest; Z86.79 Personal history of other diseases of the circulatory system; Z88.8 Allergy status to other drugs, medicaments and biological substances; Z79.01 Long term (current) use of anticoagulants; Z79.82 Long term (current) use of aspirin; Z79.811 Long term (current) use of aromatase inhibitors; Z79.899 Other long term (current) drug therapy; Z95.0 Presence of cardiac pacemaker
CPT/HCPCS: 36415; 71045; 71275; 80048; 80076; 82550; 82553; 83880; 84484; 85025; 85379; 85610; 85730; 86140; 93005; 93041; 94760; 99285; Q9967

== ENCOUNTER → 2024-07-09 | Outpatient (CLI) | payer MEDICARE, BC, OTHER ==
[~2024-07-09] MED LIST changes: -ROSU40TA63 PO; +ROSU40TA81 PO
[2024-07-09 17:32] LABS: ALBUMIN 3.7 G/DL (3.2-5.2); BILIRUBIN,TOTAL 1.2 MG/DL (0.3-1.2); CALCIUM LEVEL 9.6 MG/DL (8.3-10.6); CREATININE FOR GFR 1.48 MG/DL (0.70-1.30); GLOMERULAR FILTRATION RATE 48.9 (>42); POTASSIUM SERUM 4.7 MMOL/L (3.5-5.1); TOTAL PROTEIN 6.7 G/DL (5.7-8.2)
[2024-07-09 17:34] LABS: THYROID STIMULATING HORMONE 0.425 uIU/ML (0.55-4.78)
[2024-07-09 17:46] LABS: BASO % 0.6 % (0.0-1.0); EOS % 0.2 % (0.0-3.0); HEMATOCRIT 39.2 % (42.0-52.0); HEMOGLOBIN 13.2 g/dl (13.5-17.5); LYMPH # 1.7 10^3/uL (1.5-5.0); LYMPH % 33.5 % (24.0-44.0); MEAN CORPUSCULAR HEMOGLOBIN 30.8 pg (27.0-33.0); MEAN CORPUSCULAR HGB CONC 33.7 g/dl (32.0-36.5); MEAN CORPUSCULAR VOLUME 91.4 fl (80.0-96.0); MONO # 0.3 10^3/uL (0.0-0.8); NEUTROPHILS # 3.1 10^3/uL (1.5-8.5); NEUTROPHILS % 59.5 % (36.0-66.0); PLATELET COUNT, AUTOMATED 223 10^3/uL (150-450); RED BLOOD COUNT 4.29 10^6/uL (4.30-6.10); WHITE BLOOD COUNT 5.1 10^3/uL (4.0-10.0)
== END ==
LOC: M WUC 11:01
PROVIDERS: ATTEND Internal Medicine Cardiovascular Disease
DX: R07.9 Chest pain, unspecified (principal); I48.0 Paroxysmal atrial fibrillation; I35.1 Nonrheumatic aortic (valve) insufficiency; I11.0 Hypertensive heart disease with heart failure; E03.9 Hypothyroidism, unspecified; I50.22 Chronic systolic (congestive) heart failure

== ENCOUNTER → 2024-10-08 | Outpatient (CLI) | payer MEDICARE, BC, OTHER | LOC: M WUC 13:53 | PROVIDERS: ATTEND Physician Assistant | DX: S20.221A Contusion of right back wall of thorax, initial encounter (principal); W01.10XA Fall on same level from slipping, tripping and stumbling with subsequent striking against unspecified object, initial encounter; Y92.9 Unspecified place or not applicable; Y93.9 Activity, unspecified; Y99.9 Unspecified external cause status; I70.0 Atherosclerosis of aorta; Z95.811 Presence of heart assist device ==

== ENCOUNTER → 2024-10-21 | Outpatient (CLI) | payer MEDICARE, BC, OTHER ==
[2024-10-21 10:13] LABS: BASO % 0.6 % (0.0-1.0); HEMATOCRIT 39.8 % (42.0-52.0); HEMOGLOBIN 13.1 g/dl (13.5-17.5); LYMPH # 1.8 10^3/uL (1.5-5.0); LYMPH % 36.4 % (24.0-44.0); MEAN CORPUSCULAR HGB CONC 32.9 g/dl (32.0-36.5); MEAN CORPUSCULAR VOLUME 91.3 fl (80.0-96.0); MONO # 0.4 10^3/uL (0.0-0.8); MONO % 7.2 % (2.0-8.0); NEUTROPHILS # 2.7 10^3/uL (1.5-8.5); NEUTROPHILS % 55.6 % (36.0-66.0); PLATELET COUNT, AUTOMATED 215 10^3/uL (150-450); RED BLOOD COUNT 4.36 10^6/uL (4.30-6.10); WHITE BLOOD COUNT 4.8 10^3/uL (4.0-10.0)
[2024-10-21 10:41] LABS: ALBUMIN 3.3 G/DL (3.2-5.2); CALCIUM LEVEL 9.6 MG/DL (8.3-10.6); CREATININE FOR GFR 1.67 MG/DL (0.70-1.30); GLOMERULAR FILTRATION RATE 42.6 (>42); POTASSIUM SERUM 4.5 MMOL/L (3.5-5.1); TOTAL PROTEIN 6.5 G/DL (5.7-8.2)
[2024-10-21 10:44] LABS: THYROID STIMULATING HORMONE 0.729 uIU/ML (0.55-4.78)
== END ==
LOC: M WUC 08:36
PROVIDERS: ATTEND Internal Medicine Cardiovascular Disease
DX: I50.22 Chronic systolic (congestive) heart failure (principal); E03.2 Hypothyroidism due to medicaments and other exogenous substances; I48.0 Paroxysmal atrial fibrillation; I35.1 Nonrheumatic aortic (valve) insufficiency; I25.10 Atherosclerotic heart disease of native coronary artery without angina pectoris

== ENCOUNTER → 2025-01-22 | Outpatient (CLI) | payer MEDICARE, BC, OTHER ==
[2025-01-22 13:14] LABS: BASO % 0.5 % (0.0-1.0); EOS # 0.1 10^3/uL (0.0-0.5); EOS % 2.4 % (0.0-3.0); HEMATOCRIT 38.2 % (42.0-52.0); HEMOGLOBIN 12.6 g/dl (13.5-17.5); LYMPH # 2.1 10^3/uL (1.5-5.0); LYMPH % 36.4 % (24.0-44.0); MEAN CORPUSCULAR HEMOGLOBIN 29.2 pg (27.0-33.0); MEAN CORPUSCULAR VOLUME 88.4 fl (80.0-96.0); MONO # 0.4 10^3/uL (0.0-0.8); MONO % 7.3 % (2.0-8.0); NEUTROPHILS # 3.1 10^3/uL (1.5-8.5); NEUTROPHILS % 53.2 % (36.0-66.0); PLATELET COUNT, AUTOMATED 195 10^3/uL (150-450); RED BLOOD COUNT 4.32 10^6/uL (4.30-6.10); WHITE BLOOD COUNT 5.8 10^3/uL (4.0-10.0)
[2025-01-22 13:17] LABS: ALBUMIN 3.5 G/DL (3.2-5.2); CALCIUM LEVEL 9.5 MG/DL (8.3-10.6); CHOLESTEROL RISK RATIO 2.54 (<5); CREATININE FOR GFR 1.49 MG/DL (0.70-1.30); GLOMERULAR FILTRATION RATE 48.6 (>42); HDL CHOLESTEROL 65.1 MG/DL (>40); LDL CHOLESTEROL 83.7 MG/DL (<100); NON-HDL-C 100.9 MG/DL; POTASSIUM SERUM 4.9 MMOL/L (3.5-5.1); TOTAL PROTEIN 6.7 G/DL (5.7-8.2)
[2025-01-22 13:18] LABS: FREE T4 1.41 NG/DL (0.89-1.76); THYROID STIMULATING HORMONE 1.019 uIU/ML (0.55-4.78)
== END ==
LOC: M WUC 10:26
PROVIDERS: ATTEND Physician Assistant
DX: I50.22 Chronic systolic (congestive) heart failure (principal); I48.0 Paroxysmal atrial fibrillation

== ENCOUNTER → 2025-02-03 | Outpatient (CLI) | payer MEDICARE, BC, OTHER ==
[2025-02-03 12:59] LABS: BASO % 0.9 % (0.0-1.0); EOS # 0.1 10^3/uL (0.0-0.5); EOS % 2.8 % (0.0-3.0); HEMATOCRIT 37.2 % (42.0-52.0); HEMOGLOBIN 12.4 g/dl (13.5-17.5); LYMPH # 1.8 10^3/uL (1.5-5.0); LYMPH % 37.3 % (24.0-44.0); MEAN CORPUSCULAR HGB CONC 33.3 g/dl (32.0-36.5); MEAN CORPUSCULAR VOLUME 90.1 fl (80.0-96.0); MONO # 0.3 10^3/uL (0.0-0.8); MONO % 6.6 % (2.0-8.0); NEUTROPHILS # 2.5 10^3/uL (1.5-8.5); NEUTROPHILS % 52.2 % (36.0-66.0); PLATELET COUNT, AUTOMATED 199 10^3/uL (150-450); RED BLOOD COUNT 4.13 10^6/uL (4.30-6.10); WHITE BLOOD COUNT 4.7 10^3/uL (4.0-10.0)
[2025-02-03 13:00] LABS: ALBUMIN 3.3 G/DL (3.2-5.2)
[2025-02-03 13:07] LABS: PERCENT SATURATION 21.4 % (19.7-50.0)
[2025-02-03 13:10] LABS: FERRITIN 21.5 NG/ML (10.5-307.3)
== END ==
LOC: M WUC 09:55
PROVIDERS: ATTEND Orthopaedic Surgery Adult Reconstructive Orthopaedic Surgery
DX: Z01.818 Encounter for other preprocedural examination (principal); M17.11 Unilateral primary osteoarthritis, right knee; M25.561 Pain in right knee

== ENCOUNTER → 2025-02-05 | Outpatient (REF) | payer MEDICARE, BC, OTHER ==
[2025-02-05 13:57] LABS: HEMATOCRIT 38.9 % (42.0-52.0); HEMOGLOBIN 12.9 g/dl (13.5-17.5); MEAN CORPUSCULAR HEMOGLOBIN 29.4 pg (27.0-33.0); MEAN CORPUSCULAR HGB CONC 33.2 g/dl (32.0-36.5); MEAN CORPUSCULAR VOLUME 88.6 fl (80.0-96.0); PLATELET COUNT, AUTOMATED 202 10^3/uL (150-450); RED BLOOD COUNT 4.39 10^6/uL (4.30-6.10); WHITE BLOOD COUNT 5.1 10^3/uL (4.0-10.0)
[2025-02-05 14:19] LABS: HEMOGLOBIN A1c 5.1 % (4.0-6.0)
[2025-02-05 14:25] LABS: PSA SCREENING 1.25 NG/ML (< 4.00)
[2025-02-05 14:27] LABS: ALBUMIN 3.5 G/DL (3.2-5.2); BILIRUBIN,TOTAL 1.2 MG/DL (0.3-1.2); CALCIUM LEVEL 9.7 MG/DL (8.3-10.6); CHOLESTEROL RISK RATIO 2.55 (<5); CREATININE FOR GFR 1.56 MG/DL (0.70-1.30); GLOMERULAR FILTRATION RATE 46.1 (>42); HDL CHOLESTEROL 63.4 MG/DL (>40); LDL CHOLESTEROL 77.6 MG/DL (<100); NON-HDL-C 98.6 MG/DL; POTASSIUM SERUM 4.9 MMOL/L (3.5-5.1); TOTAL PROTEIN 6.8 G/DL (5.7-8.2)
[2025-02-05 14:29] LABS: FREE T4 1.55 NG/DL (0.89-1.76)
[2025-02-05 14:30] LABS: THYROID STIMULATING HORMONE 1.167 uIU/ML (0.55-4.78)
== END ==
LOC: M SFHCADAM 09:42
PROVIDERS: ATTEND Family Medicine
DX: Z13.1 Encounter for screening for diabetes mellitus (principal); Z12.5 Encounter for screening for malignant neoplasm of prostate; I50.22 Chronic systolic (congestive) heart failure; N18.32 Chronic kidney disease, stage 3b; E78.2 Mixed hyperlipidemia; E03.9 Hypothyroidism, unspecified; I25.10 Atherosclerotic heart disease of native coronary artery without angina pectoris
CPT/HCPCS: 80053; 80061; 83036; 83880; 84439; 84443; 85027; G0103

== ENCOUNTER 2025-02-24 11:00 | Emergency (ER) | payer MEDICARE, BC, OTHER ==
[~2025-02-24] VITALS: Ht 172.7 cm; Wt 68.8 kg
[2025-02-24] MEDS ORDERED: MELA3TAB49 PO (11:33)
[2025-02-24] MEDS ORDERED: OMEP40CA4 PO (11:33)
[2025-02-24] MEDS ORDERED: FOLI800C PO (11:33)
[2025-02-24] MEDS ORDERED: AMIO100T4 PO (11:33)
[2025-02-24] MEDS: ONDANSETRON 4MG 2ML VIAL IV ONE ×2 (11:45→17:55)
[2025-02-24] MEDS: NS 500 ML IV ONE ×2 (12:20→14:35)
[2025-02-24 12:51] LABS: BASO % 0.3 % (0.0-1.0); HEMATOCRIT 32.9 % (42.0-52.0); LYMPH # 1.5 10^3/uL (1.5-5.0); MEAN CORPUSCULAR HEMOGLOBIN 30.2 pg (27.0-33.0); MEAN CORPUSCULAR HGB CONC 33.4 g/dl (32.0-36.5); MEAN CORPUSCULAR VOLUME 90.4 fl (80.0-96.0); MONO # 0.6 10^3/uL (0.0-0.8); MONO % 8.8 % (2.0-8.0); NEUTROPHILS # 5.2 10^3/uL (1.5-8.5); NEUTROPHILS % 70.6 % (36.0-66.0); PLATELET COUNT, AUTOMATED 259 10^3/uL (150-450); RED BLOOD COUNT 3.64 10^6/uL (4.30-6.10); WHITE BLOOD COUNT 7.3 10^3/uL (4.0-10.0)
[2025-02-24 13:16] LABS: ALBUMIN 3.2 G/DL (3.2-5.2); BILIRUBIN,DIRECT 0.5 MG/DL (<0.4); BILIRUBIN,TOTAL 1.4 MG/DL (0.3-1.2); CALCIUM LEVEL 9.3 MG/DL (8.3-10.6); CREATININE FOR GFR 1.62 MG/DL (0.70-1.30); GLOMERULAR FILTRATION RATE 43.2 (>42); POTASSIUM SERUM 4.7 MMOL/L (3.5-5.1); TOTAL PROTEIN 6.6 G/DL (5.7-8.2)
[2025-02-24] MEDS ORDERED: ISOVUE-370 76% 100ML VIAL As Ordered ONE (13:56)
[2025-02-24 15:39] LABS: KETONE, URINE AUTO RFX NEGATIVE (NEGATIVE); LEUKOCYTE ESTERASE UR AUTO RFX NEGATIVE (NEGATIVE); NITRITE, URINE AUTO RFX NEGATIVE (NEGATIVE); RBC, URINE AUTO RFX 0 /HPF (0-3); SQUAM EPITHELIAL CELL UR AURFX 0 /HPF (0-6); WBC, URINE AUTO RFX 0 /HPF (0-3)
[2025-02-24] MEDS: MAGNESIUM CITRATE 300ML BTL PO ONE (18:45)
[2025-02-24 19:46] VITALS: BP 124/65; TEMP 97.8; O2SAT 94
== END 2025-02-24 19:45 | disposition home or self-care (01) ==
LOC: EDBD 11:00 → M ED 11:00
DX: K59.00 Constipation, unspecified (principal); R10.9 Unspecified abdominal pain; I50.22 Chronic systolic (congestive) heart failure; I25.2 Old myocardial infarction; I11.0 Hypertensive heart disease with heart failure; E78.5 Hyperlipidemia, unspecified; Z88.6 Allergy status to analgesic agent; Z88.8 Allergy status to other drugs, medicaments and biological substances; Z79.1 Long term (current) use of non-steroidal anti-inflammatories (NSAID); Z79.01 Long term (current) use of anticoagulants; Z79.899 Other long term (current) drug therapy
CPT/HCPCS: 71045; 74177; 80048; 80076; 81001; 82150; 83605; 83690; 85025; 87040; 93005; 93041; 96361; 96374; 96375; 99285; J2405; Q9967

== ENCOUNTER → 2025-05-12 | Outpatient (CLI) | payer MEDICARE, BC, OTHER ==
[~2025-05-12] MED LIST changes: +AMIO100T4 PO; -AMIO200T49 PO; +AMIO200T54 PO; +MELA3TAB49 PO; +OMEP40CA4 PO
[2025-05-12 16:28] LABS: CALCIUM LEVEL 9.8 MG/DL (8.3-10.6); CARBON DIOXIDE LEVEL 29.0 MMOL/L (20-31); CHLORIDE LEVEL 108.0 MMOL/L (98-107); CREATININE FOR GFR 1.66 MG/DL (0.70-1.30); GLOMERULAR FILTRATION RATE 41.9 (>42); POTASSIUM SERUM 4.4 MMOL/L (3.5-5.1); SODIUM LEVEL 145.0 MMOL/L (136-145)
== END ==
LOC: M WUC 11:00
PROVIDERS: ATTEND Physician Assistant
DX: I50.22 Chronic systolic (congestive) heart failure (principal)

== ENCOUNTER → 2025-10-06 | Outpatient (REF) | payer MEDICARE, BC, OTHER ==
[~2025-10-06] MED LIST changes: -VITA500T17 PO; +VITA500T8 PO
[2025-10-06 13:25] LABS: PLATELET COUNT, AUTOMATED 241 10^3/uL (150-450)
[2025-10-06 13:44] LABS: ESTIMATED AVERAGE GLUCOSE 117.0 MG/DL (60-110)
[2025-10-06 13:58] LABS: ALT/SGPT 41.0 U/L (7.0-40); AST/SGOT 42.0 U/L (<34); CALCIUM LEVEL 9.1 MG/DL (8.3-10.6); CARBON DIOXIDE LEVEL 25.0 MMOL/L (20-31); CHLORIDE LEVEL 109.0 MMOL/L (98-107); CHOLESTEROL LEVEL 179.0 MG/DL (<200); CHOLESTEROL RISK RATIO 2.41 (<5); CREATININE FOR GFR 1.83 MG/DL (0.70-1.30); GLOMERULAR FILTRATION RATE 37.1 (>42); LDL CHOLESTEROL 75.2 MG/DL (<100); NON-HDL-C 104.8 MG/DL; POTASSIUM SERUM 4.7 MMOL/L (3.5-5.1); SODIUM LEVEL 145.0 MMOL/L (136-145); TRIGLYCERIDES LEVEL 148.0 MG/DL (<150)
[2025-10-06 13:59] LABS: FREE T4 1.54 NG/DL (0.89-1.76)
== END ==
LOC: M SFHCADAM 09:33
DX: Z13.1 Encounter for screening for diabetes mellitus (principal); I50.22 Chronic systolic (congestive) heart failure; E78.2 Mixed hyperlipidemia; N18.32 Chronic kidney disease, stage 3b; E03.9 Hypothyroidism, unspecified